=== PATIENT | male | born 1935 | race African-American/Black ===

== ENCOUNTER 2019-01-25 11:06 | Inpatient (IN) ==
[2019-01-25] MEDS ORDERED: FUROSEMIDE 40 MG/4 ML VIAL IV STA (11:25)
[2019-01-25] MEDS ORDERED: METOPROLOL TARTRATE 5 MG/5 ML VIAL IV STA (11:25)
[2019-01-25] MEDS ORDERED: ALBUTEROL/IPRATROPIUM 3 ML NEB RESP TX STA (11:25)
[2019-01-25] MEDS ORDERED: DILTIAZEM 25 MG/5 ML VIAL IV ONE (11:56)
[2019-01-25] MEDS ORDERED: dilTIAZem Drip 125 MG/125 ML PREMIX IV ONE (12:01)
[2019-01-25] MEDS ORDERED: DILTIAZEM 50 MG/10 ML VIAL IV STA (12:01)
[2019-01-25] MEDS ORDERED: DILTIAZEM 50 MG/10 ML VIAL IV ONE (12:01)
[2019-01-25 12:27] LABS: Basophils % 0.1 % (0.0-0.8); Eosinophils % 0.3 % (0.00-10.9); Hematocrit 31.6 VOL% (42.0-52.0); Hemoglobin 9.7 GM/DL (14.0-18.0); Immature Granulocytes % 0.3 %; Immature Granulocytes Absolute 0.02 #; Lymphocytes # 0.6 10*3/uL (1.4-4.0); Lymphocytes % 8.8 % (21.2-54.2); Mean Corpuscular HGB Conc 30.7 GM/DL (32-36); Mean Corpuscular Hemoglobin 29 PG (27-34); Mean Corpuscular Volume 94.6 FL (87-102); Monocytes # 0.8 10*3/uL (0.11-0.8); Monocytes % 11.1 % (1.7-12.7); Neutrophils # 5.5 10*3/uL (1.4-7.4); Neutrophils % 79.4 % (38.7-73.9); Platelet Count 208 T/CUMM (130-400); Red Blood Count 3.34 MC/CUMM (3.8-5.5); Red Cell Distribution Width 15.8 % (9.3-17.3)
[2019-01-25] MEDS ORDERED: dilTIAZem Drip 125 MG/125 ML PREMIX IV SCH (12:30)
[2019-01-25 12:48] LABS: INR 2.4; Partial Thromboplastin Time 39.3 SECS (0-40)
[2019-01-25 12:50] LABS: PT Patient Result 26.3 SECS
[2019-01-25 12:57] LABS: Alanine Aminotransferase 16 U/L (16-61); Albumin 2.8 G/DL (3.4-5.0); Alkaline Phosphatase 142 U/L (45-117); Aspartate Amino Transferase 19 U/L (0-37); Blood Urea Nitrogen 24 MG/DL (7-18); Calcium 9.4 MG/DL (8.5-10.1); Glucose 133 MG/DL (74-106); Osmolality,Calculated 278.8 MOS/KG (273-304); Potassium 3.8 MMOL/L (3.5-5.1); Sodium 137 MMOL/L (136-145); Thyroid Stimulating Hormone 0.148 uIU/ml (0.358-3.74); Total Protein 8.6 G/DL (6.4-8.3); Troponin I 0.038 NG/ML (0.00-0.045)
[2019-01-25 13:14] LABS: Barbiturates Screen,Urine Negative (Negative); Benzodiazepines Screen,Urine Negative (Negative); Cannabinoid Screen,Urine Negative (Negative); Opiate Screen,Urine Negative (Negative); Phencyclidine Screen,Urine Negative (Negative)
[2019-01-25 13:15] LABS: Apearance,Urine CLEAR (Clear); Bilirubin,Urine Negative (Negative); Blood, Urine Small mg/dL (Negative); Glucose,Urine (UA) Negative (Negative); Ketones,Urine Negative (Negative); Mucus,Urine Occasional /LPF (Occasional); Nitrite,Urine Negative (Negative); Protein,Urine 30 MG/DL; RBC,Urine 2 /HPF (0-4); Squamous Epithelial Cell,Urine Occasional /HPF (0-10); Urine Color Yellow (Yellow); Urine Specific Gravity 1.013 (1.001-1.035); Urine Urobilinogen < 2.0 EU/DL (0.2-1.0); WBC,Urine 2 /HPF (0-6)
[2019-01-25] MEDS ORDERED: ONDANSETRON 4 MG/2 ML VIAL IV PRN (14:36)
[2019-01-25] MEDS ORDERED: niCARdipine INJ 25 MG in SODIUM CHLORIDE 0.9% 240 ML IV PRN (14:36)
[2019-01-25] MEDS ORDERED: ACETAMINOPHEN 500 MG TABLET PO PRN (14:36)
[2019-01-25] MEDS ORDERED: INFLUENZA VIRUS VACCINE 0.5 ML SYRINGE IM ONE (15:01)
[2019-01-25] MEDS: FUROSEMIDE 40 MG/4 ML VIAL IV SCH (17:12)
[2019-01-25] MEDS ORDERED: LORATADINE 10 MG TABLET PO ONE (17:49)
[2019-01-25] MEDS ORDERED: WARFARIN 7.5 MG TABLET PO SCH (18:00)
[2019-01-25] MEDS: methylPREDNISolone SOD SUC 40 MG/1 ML VIAL IV SCH (18:43)
[2019-01-25] MEDS: BUDESONIDE 0.25 MG/2 ML NEB RESP TX SCH (19:57)
[2019-01-25] MEDS: ALBUTEROL/IPRATROPIUM 3 ML NEB RESP TX SCH (19:57)
[2019-01-25] MEDS ORDERED: AMIODARONE INJ 150 MG in DEXTROSE 5% 100 ML IV ONE (20:23)
[2019-01-25] MEDS ORDERED: AMIODARONE INJ 450 MG in DEXTROSE 5% 241 ML IV SCH (20:30)
[2019-01-25] MEDS: MEGESTROL 400 MG/10 ML UDCUP PO SCH (21:10)
[2019-01-25] MEDS: BENZONATATE 100 MG CAPSULE PO SCH (21:10)
[2019-01-25] MEDS: TAMSULOSIN 0.4 MG CAPSULE PO SCH (21:10)
[2019-01-25] MEDS: cefTRIAXone 500 MG in SYRINGE 1 EACH IV SCH (21:10)
[2019-01-25 21:26] LABS: Troponin I 0.062 NG/ML (0.00-0.045)
[2019-01-26] MEDS: ALBUTEROL/IPRATROPIUM 3 ML NEB RESP TX SCH ×4 (00:36→20:05)
[2019-01-26 01:12] LABS: Troponin I 0.086 NG/ML (0.00-0.045)
[2019-01-26] MEDS: methylPREDNISolone SOD SUC 40 MG/1 ML VIAL IV SCH ×3 (01:56→20:21)
[2019-01-26 03:15] LABS: Hemoglobin 8.3 GM/DL (14.0-18.0); Immature Granulocytes % 0.4 %; Immature Granulocytes Absolute 0.02 #; Lymphocytes # 0.2 10*3/uL (1.4-4.0); Lymphocytes % 3.7 % (21.2-54.2); Mean Corpuscular HGB Conc 30.7 GM/DL (32-36); Mean Corpuscular Hemoglobin 29 PG (27-34); Mean Corpuscular Volume 94.7 FL (87-102); Monocytes # 0.1 10*3/uL (0.11-0.8); Monocytes % 2.1 % (1.7-12.7); Neutrophils # 4.5 10*3/uL (1.4-7.4); Neutrophils % 93.8 % (38.7-73.9); Platelet Count 202 T/CUMM (130-400); Red Blood Count 2.85 MC/CUMM (3.8-5.5); Red Cell Distribution Width 15.7 % (9.3-17.3); White Blood Count 4.8 T/CUMM (4-12)
[2019-01-26 03:22] LABS: PT Patient Result 32.2 SECS
[2019-01-26 03:32] LABS: Albumin 2.5 G/DL (3.4-5.0); Bilirubin,Total 0.6 MG/DL (0.2-1.0); Osmolality,Calculated 282.1 MOS/KG (273-304); Potassium 3.7 MMOL/L (3.5-5.1); Total Protein 7.9 G/DL (6.4-8.3)
[2019-01-26 03:42] LABS: B-Type Natriuretic Peptide 664 PG/ML (2-100)
[2019-01-26 03:49] LABS: Troponin I 0.106 NG/ML (0.00-0.045)
[2019-01-26 03:54] LABS: Vitamin B12 1276 PG/ML (211-911)
[2019-01-26 04:36] LABS: Acanthocytes Few; Anisocytosis 1+; Band Neutrophils 1 % (0-10); Hypochromasia 1+; Lymphocytes 2 % (20-55); Segmented Neutrophils 95 % (50-85); Total Cells Counted 100
[2019-01-26 04:37] LABS: Platelet Estimate Adequate; Target Cells Few
[2019-01-26] MEDS ORDERED: FUROSEMIDE 40 MG/4 ML VIAL IV ONE (07:15)
[2019-01-26] MEDS ORDERED: SODIUM CHLORIDE 0.9% 1,000 ML IV PRN (07:16)
[2019-01-26] MEDS ORDERED: POTASSIUM CHLORIDE RIDER 10 MEQ in PREMIX 1 EACH IV PRN (07:48)
[2019-01-26] MEDS ORDERED: DIAZEPAM 5 MG TABLET PO ONE (07:48)
[2019-01-26] MEDS ORDERED: MAGNESIUM SULF RIDER 2 GM in PREMIX 1 EACH IV PRN (07:48)
[2019-01-26] MEDS ORDERED: diphenhydrAMINE CAP 25 MG CAPSULE PO ONE (07:48)
[2019-01-26] MEDS ORDERED: AMIODARONE 450 MG/9 ML VIAL IV ONE (07:55)
[2019-01-26] MEDS: BUDESONIDE 0.25 MG/2 ML NEB RESP TX SCH ×2 (08:07→20:05)
[2019-01-26] MEDS: AMIODARONE INJ 450 MG in DEXTROSE 5% 241 ML IV SCH ×2 (08:18→23:20)
[2019-01-26] MEDS: FUROSEMIDE 40 MG/4 ML VIAL IV SCH ×2 (09:35→16:42)
[2019-01-26] MEDS: LORATADINE 10 MG TABLET PO SCH (09:41)
[2019-01-26] MEDS: MEGESTROL 400 MG/10 ML UDCUP PO SCH ×2 (09:42→20:17)
[2019-01-26] MEDS: PANTOPRAZOLE 40 MG TABLET PO SCH (09:42)
[2019-01-26] MEDS: FERROUS SULFATE 325 MG TABLET PO SCH (09:42)
[2019-01-26] MEDS: BENZONATATE 100 MG CAPSULE PO SCH ×3 (09:42→20:18)
[2019-01-26] MEDS ORDERED: HEPARIN/NACL 0.9% 2 UNITS/ML 1,000 ML IV ONE (13:37)
[2019-01-26] MEDS ORDERED: LIDOCAINE 1% 20 ML VIAL ONE (14:00)
[2019-01-26] MEDS ORDERED: HYDROmorphone 2 MG/1 ML VIAL ONE (14:00)
[2019-01-26] MEDS ORDERED: MIDAZOLAM 2 MG/2 ML VIAL ONE (14:01)
[2019-01-26] MEDS: SODIUM CHLORIDE 0.45% 1,000 ML IV SCH ×2 (16:16→16:43)
[2019-01-26] MEDS ORDERED: SODIUM CHLORIDE 0.45% 500 ML IV SCH (19:00)
[2019-01-26] MEDS: TAMSULOSIN 0.4 MG CAPSULE PO SCH (20:17)
[2019-01-26] MEDS: cefTRIAXone 500 MG in SYRINGE 1 EACH IV SCH (20:17)
[2019-01-27] MEDS: ALBUTEROL/IPRATROPIUM 3 ML NEB RESP TX SCH ×4 (00:41→19:38)
[2019-01-27] MEDS: SODIUM CHLORIDE 0.45% 1,000 ML IV SCH ×2 (05:17→14:58)
[2019-01-27] MEDS: methylPREDNISolone SOD SUC 40 MG/1 ML VIAL IV SCH ×3 (05:19→21:32)
[2019-01-27 05:30] LABS: Basophils % 0.1 % (0.0-0.8); Hematocrit 31.9 VOL% (42.0-52.0); Hemoglobin 10.2 GM/DL (14.0-18.0); Immature Granulocytes % 0.6 %; Immature Granulocytes Absolute 0.07 #; Lymphocytes # 0.2 10*3/uL (1.4-4.0); Lymphocytes % 1.6 % (21.2-54.2); Mean Corpuscular Hemoglobin 29 PG (27-34); Mean Corpuscular Volume 91.1 FL (87-102); Mean Platelet Volume 9.5 FL (9.6-12.0); Monocytes # 0.5 10*3/uL (0.11-0.8); Monocytes % 3.7 % (1.7-12.7); Neutrophils # 11.4 10*3/uL (1.4-7.4); Platelet Count 205 T/CUMM (130-400); Red Cell Distribution Width 15.8 % (9.3-17.3); White Blood Count 12.1 T/CUMM (4-12)
[2019-01-27 05:56] LABS: Calcium 9.4 MG/DL (8.5-10.1); Osmolality,Calculated 283.8 MOS/KG (273-304); Potassium 3.6 MMOL/L (3.5-5.1)
[2019-01-27 06:00] LABS: Hypochromasia 1+; Lymphocytes 2 % (20-55); Ovalocytes Slight; Platelet Estimate Adequate; Segmented Neutrophils 94 % (50-85); Total Cells Counted 100
[2019-01-27 06:53] LABS: PT Patient Result 71.3 SECS
[2019-01-27 06:55] LABS: INR 6.7
[2019-01-27] MEDS: BUDESONIDE 0.25 MG/2 ML NEB RESP TX SCH ×2 (08:39→19:39)
[2019-01-27] MEDS: AMIODARONE 200 MG TABLET PO SCH ×2 (09:19→21:28)
[2019-01-27] MEDS: FERROUS SULFATE 325 MG TABLET PO SCH (09:19)
[2019-01-27] MEDS: LORATADINE 10 MG TABLET PO SCH (09:19)
[2019-01-27] MEDS: BENZONATATE 100 MG CAPSULE PO SCH ×3 (09:19→21:28)
[2019-01-27] MEDS: MEGESTROL 400 MG/10 ML UDCUP PO SCH ×2 (09:19→21:29)
[2019-01-27] MEDS: PANTOPRAZOLE 40 MG TABLET PO SCH (09:19)
[2019-01-27] MEDS: FUROSEMIDE 40 MG/4 ML VIAL IV SCH (12:29)
[2019-01-27] MEDS: CARVEDILOL 3.125 MG TABLET PO SCH ×2 (14:29→21:28)
[2019-01-27] MEDS: POTASSIUM CHLORIDE 10 MEQ TABLET PO SCH (14:30)
[2019-01-27] MEDS ORDERED: BISACODYL 5 MG TABLET PO PRN (18:24)
[2019-01-27] MEDS: ASCORBIC ACID 500 MG TABLET PO SCH (21:28)
[2019-01-27] MEDS: TAMSULOSIN 0.4 MG CAPSULE PO SCH (21:29)
[2019-01-27] MEDS: cefTRIAXone 500 MG in SYRINGE 1 EACH IV SCH (21:29)
[2019-01-28] MEDS: ALBUTEROL/IPRATROPIUM 3 ML NEB RESP TX SCH ×4 (01:50→20:41)
[2019-01-28] MEDS: methylPREDNISolone SOD SUC 40 MG/1 ML VIAL IV SCH ×3 (04:30→21:43)
[2019-01-28 05:45] LABS: Calcium 9.3 MG/DL (8.5-10.1); Osmolality,Calculated 285.1 MOS/KG (273-304); Potassium 3.7 MMOL/L (3.5-5.1)
[2019-01-28 05:51] LABS: PT Patient Result 102.2 SECS
[2019-01-28 05:52] LABS: INR 9.6
[2019-01-28] MEDS ORDERED: PHYTONADIONE 10 MG/1 ML AMP SUBCUT ONE (06:03)
[2019-01-28] MEDS: SODIUM CHLORIDE 0.45% 1,000 ML IV SCH (06:14)
[2019-01-28] MEDS: BUDESONIDE 0.25 MG/2 ML NEB RESP TX SCH ×2 (06:54→20:41)
[2019-01-28] MEDS: AMIODARONE 200 MG TABLET PO SCH ×2 (08:40→21:42)
[2019-01-28] MEDS: POTASSIUM CHLORIDE 10 MEQ TABLET PO SCH (08:40)
[2019-01-28] MEDS: LORATADINE 10 MG TABLET PO SCH (08:40)
[2019-01-28] MEDS: CARVEDILOL 3.125 MG TABLET PO SCH ×2 (08:41→21:42)
[2019-01-28] MEDS: BENZONATATE 100 MG CAPSULE PO SCH ×3 (08:41→21:42)
[2019-01-28] MEDS: FERROUS SULFATE 325 MG TABLET PO SCH (08:41)
[2019-01-28] MEDS: MEGESTROL 400 MG/10 ML UDCUP PO SCH ×2 (08:41→21:41)
[2019-01-28] MEDS: ASCORBIC ACID 500 MG TABLET PO SCH ×2 (08:41→21:42)
[2019-01-28] MEDS: PANTOPRAZOLE 40 MG TABLET PO SCH (08:41)
[2019-01-28] MEDS: TAMSULOSIN 0.4 MG CAPSULE PO SCH (21:42)
[2019-01-28] MEDS: cefTRIAXone 500 MG in SYRINGE 1 EACH IV SCH (21:43)
[2019-01-29] MEDS: ALBUTEROL/IPRATROPIUM 3 ML NEB RESP TX SCH ×4 (01:36→19:20)
[2019-01-29 04:33] LABS: INR 4.2
[2019-01-29 04:37] LABS: PT Patient Result 44.6 SECS
[2019-01-29 04:54] LABS: Basophils % 0.1 % (0.0-0.8); Hematocrit 32.6 VOL% (42.0-52.0); Hemoglobin 10.3 GM/DL (14.0-18.0); Immature Granulocytes Absolute 0.15 #; Lymphocytes # 0.1 10*3/uL (1.4-4.0); Mean Corpuscular HGB Conc 31.6 GM/DL (32-36); Mean Corpuscular Hemoglobin 29 PG (27-34); Mean Corpuscular Volume 91.1 FL (87-102); Monocytes # 0.7 10*3/uL (0.11-0.8); Monocytes % 4.5 % (1.7-12.7); Neutrophils # 13.5 10*3/uL (1.4-7.4); Neutrophils % 93.4 % (38.7-73.9); Platelet Count 233 T/CUMM (130-400); Red Blood Count 3.58 MC/CUMM (3.8-5.5); Red Cell Distribution Width 15.8 % (9.3-17.3); White Blood Count 14.5 T/CUMM (4-12)
[2019-01-29 04:58] LABS: Calcium 9.1 MG/DL (8.5-10.1); Osmolality,Calculated 295.4 MOS/KG (273-304); Potassium 4.1 MMOL/L (3.5-5.1)
[2019-01-29 05:23] LABS: Hypochromasia 1+; Lymphocytes 2 % (20-55); Microcytosis 1+; Platelet Estimate Normal; Polychromasia Few; Segmented Neutrophils 98 % (50-85); Total Cells Counted 100
[2019-01-29] MEDS: BUDESONIDE 0.25 MG/2 ML NEB RESP TX SCH ×2 (07:12→19:20)
[2019-01-29] MEDS: methylPREDNISolone SOD SUC 40 MG/1 ML VIAL IV SCH ×3 (07:48→21:54)
[2019-01-29] MEDS: LORATADINE 10 MG TABLET PO SCH (09:28)
[2019-01-29] MEDS: ASCORBIC ACID 500 MG TABLET PO SCH ×2 (09:28→22:01)
[2019-01-29] MEDS: POTASSIUM CHLORIDE 10 MEQ TABLET PO SCH (09:28)
[2019-01-29] MEDS: CARVEDILOL 3.125 MG TABLET PO SCH ×2 (09:28→21:53)
[2019-01-29] MEDS: MEGESTROL 400 MG/10 ML UDCUP PO SCH ×2 (09:28→21:51)
[2019-01-29] MEDS: PANTOPRAZOLE 40 MG TABLET PO SCH (09:29)
[2019-01-29] MEDS: BENZONATATE 100 MG CAPSULE PO SCH ×3 (09:29→21:53)
[2019-01-29] MEDS: FERROUS SULFATE 325 MG TABLET PO SCH (09:29)
[2019-01-29] MEDS: AMIODARONE 200 MG TABLET PO SCH ×2 (09:29→21:53)
[2019-01-29] MEDS: cefTRIAXone 500 MG in SYRINGE 1 EACH IV SCH (21:50)
[2019-01-29] MEDS: TAMSULOSIN 0.4 MG CAPSULE PO SCH (21:53)
[2019-01-29] MEDS: ZALEPLON 5 MG CAPSULE PO PRN (21:53)
[2019-01-30] MEDS: ALBUTEROL/IPRATROPIUM 3 ML NEB RESP TX SCH ×4 (00:35→19:58)
[2019-01-30] MEDS: methylPREDNISolone SOD SUC 40 MG/1 ML VIAL IV SCH ×3 (05:00→20:55)
[2019-01-30] MEDS: BUDESONIDE 0.25 MG/2 ML NEB RESP TX SCH ×2 (07:46→19:58)
[2019-01-30] MEDS ORDERED: FUROSEMIDE 40 MG/4 ML VIAL IV ONE (08:05)
[2019-01-30] MEDS: ASCORBIC ACID 500 MG TABLET PO SCH ×2 (09:05→20:55)
[2019-01-30] MEDS: PANTOPRAZOLE 40 MG TABLET PO SCH (09:05)
[2019-01-30] MEDS: AMIODARONE 200 MG TABLET PO SCH ×2 (09:06→20:55)
[2019-01-30] MEDS: BENZONATATE 100 MG CAPSULE PO SCH ×3 (09:06→20:55)
[2019-01-30] MEDS: LORATADINE 10 MG TABLET PO SCH (09:06)
[2019-01-30] MEDS: FERROUS SULFATE 325 MG TABLET PO SCH (09:07)
[2019-01-30] MEDS: POTASSIUM CHLORIDE 10 MEQ TABLET PO SCH (09:07)
[2019-01-30] MEDS: MEGESTROL 400 MG/10 ML UDCUP PO SCH ×2 (09:08→20:54)
[2019-01-30] MEDS: TAMSULOSIN 0.4 MG CAPSULE PO SCH (20:55)
[2019-01-30] MEDS: ZALEPLON 5 MG CAPSULE PO PRN (20:55)
[2019-01-30] MEDS: cefTRIAXone 500 MG in SYRINGE 1 EACH IV SCH (20:56)
[2019-01-31] MEDS: ALBUTEROL/IPRATROPIUM 3 ML NEB RESP TX SCH ×4 (01:22→19:20)
[2019-01-31] MEDS: methylPREDNISolone SOD SUC 40 MG/1 ML VIAL IV SCH ×3 (04:32→22:19)
[2019-01-31 06:03] LABS: Basophils % 0.1 % (0.0-0.8); Hematocrit 35.2 VOL% (42.0-52.0); Hemoglobin 11.1 GM/DL (14.0-18.0); Immature Granulocytes % 0.7 %; Immature Granulocytes Absolute 0.09 #; Lymphocytes # 0.2 10*3/uL (1.4-4.0); Lymphocytes % 1.5 % (21.2-54.2); Mean Corpuscular HGB Conc 31.5 GM/DL (32-36); Mean Corpuscular Hemoglobin 29 PG (27-34); Mean Corpuscular Volume 92.1 FL (87-102); Mean Platelet Volume 9.7 FL (9.6-12.0); Monocytes # 0.7 10*3/uL (0.11-0.8); Monocytes % 5.3 % (1.7-12.7); Neutrophils # 11.8 10*3/uL (1.4-7.4); Neutrophils % 92.4 % (38.7-73.9); Platelet Count 288 T/CUMM (130-400); Red Blood Count 3.82 MC/CUMM (3.8-5.5); White Blood Count 12.8 T/CUMM (4-12)
[2019-01-31 06:12] LABS: INR 1.8; PT Patient Result 19.9 SECS
[2019-01-31 06:20] LABS: Albumin 2.5 G/DL (3.4-5.0); Bilirubin,Total 0.9 MG/DL (0.2-1.0); Calcium 9.7 MG/DL (8.5-10.1); Potassium 4.5 MMOL/L (3.5-5.1); Total Protein 7.8 G/DL (6.4-8.3)
[2019-01-31 06:33] LABS: Eosinophils 1 % (0-10); Lymphocytes 1 % (20-55); Platelet Estimate Normal; Segmented Neutrophils 97 % (50-85); Total Cells Counted 100
[2019-01-31 06:34] LABS: Hypochromasia Slight
[2019-01-31] MEDS: BUDESONIDE 0.25 MG/2 ML NEB RESP TX SCH ×2 (07:10→19:20)
[2019-01-31] MEDS: ASCORBIC ACID 500 MG TABLET PO SCH ×2 (08:56→22:18)
[2019-01-31] MEDS: BENZONATATE 100 MG CAPSULE PO SCH ×3 (08:56→22:18)
[2019-01-31] MEDS: POTASSIUM CHLORIDE 10 MEQ TABLET PO SCH (08:57)
[2019-01-31] MEDS: FERROUS SULFATE 325 MG TABLET PO SCH (08:57)
[2019-01-31] MEDS: AMIODARONE 200 MG TABLET PO SCH ×2 (08:57→22:18)
[2019-01-31] MEDS: LORATADINE 10 MG TABLET PO SCH (08:58)
[2019-01-31] MEDS: MEGESTROL 400 MG/10 ML UDCUP PO SCH ×2 (08:59→22:19)
[2019-01-31] MEDS: PANTOPRAZOLE 40 MG TABLET PO SCH (08:59)
[2019-01-31] MEDS ORDERED: SODIUM CHLORIDE 0.9% 1,000 ML IV SCH (17:30)
[2019-01-31] MEDS: cefTRIAXone 500 MG in SYRINGE 1 EACH IV SCH (22:15)
[2019-01-31] MEDS: TAMSULOSIN 0.4 MG CAPSULE PO SCH (22:19)
[2019-01-31] MEDS: traZODone 50 MG TABLET PO PRN (22:20)
[2019-02-01] MEDS: ALBUTEROL/IPRATROPIUM 3 ML NEB RESP TX SCH ×4 (00:16→19:57)
[2019-02-01] MEDS: methylPREDNISolone SOD SUC 40 MG/1 ML VIAL IV SCH ×3 (04:42→20:26)
[2019-02-01 04:44] LABS: Basophils % 0.1 % (0.0-0.8); Hematocrit 34.8 VOL% (42.0-52.0); Hemoglobin 10.6 GM/DL (14.0-18.0); Immature Granulocytes % 1.7 %; Lymphocytes # 0.2 10*3/uL (1.4-4.0); Lymphocytes % 1.5 % (21.2-54.2); Mean Corpuscular HGB Conc 30.5 GM/DL (32-36); Mean Corpuscular Hemoglobin 29 PG (27-34); Mean Corpuscular Volume 94.1 FL (87-102); Mean Platelet Volume 9.5 FL (9.6-12.0); Monocytes # 0.7 10*3/uL (0.11-0.8); Neutrophils # 10.9 10*3/uL (1.4-7.4); Neutrophils % 90.7 % (38.7-73.9); Platelet Count 280 T/CUMM (130-400); Red Cell Distribution Width 15.9 % (9.3-17.3)
[2019-02-01 04:50] LABS: INR 1.7; PT Patient Result 18.4 SECS
[2019-02-01 05:10] LABS: Band Neutrophils 1 % (0-10); Lymphocytes 2 % (20-55); Metamyelocytes 3 %; Platelet Estimate Normal; Segmented Neutrophils 86 % (50-85); Total Cells Counted 100
[2019-02-01 05:13] LABS: Calcium 9.4 MG/DL (8.5-10.1); Osmolality,Calculated 294.4 MOS/KG (273-304); Potassium 4.6 MMOL/L (3.5-5.1)
[2019-02-01] MEDS: BUDESONIDE 0.25 MG/2 ML NEB RESP TX SCH ×2 (07:50→19:57)
[2019-02-01] MEDS: FERROUS SULFATE 325 MG TABLET PO SCH (10:33)
[2019-02-01] MEDS: AMIODARONE 200 MG TABLET PO SCH ×2 (10:33→20:26)
[2019-02-01] MEDS: LORATADINE 10 MG TABLET PO SCH (10:33)
[2019-02-01] MEDS: POTASSIUM CHLORIDE 10 MEQ TABLET PO SCH (10:34)
[2019-02-01] MEDS: PANTOPRAZOLE 40 MG TABLET PO SCH (10:34)
[2019-02-01] MEDS: MEGESTROL 400 MG/10 ML UDCUP PO SCH ×2 (10:34→20:26)
[2019-02-01] MEDS: BENZONATATE 100 MG CAPSULE PO SCH ×3 (10:35→20:27)
[2019-02-01] MEDS: ASCORBIC ACID 500 MG TABLET PO SCH ×2 (10:35→20:26)
[2019-02-01] MEDS ORDERED: ceFAZolin 1,000 MG VIAL IRRIG ONE (12:00)
[2019-02-01] MEDS ORDERED: diphenhydrAMINE CAP 25 MG CAPSULE PO ONE (12:00)
[2019-02-01] MEDS ORDERED: ceFAZolin 1,000 MG in SYRINGE 1 EACH IV ONE (12:00)
[2019-02-01] MEDS ORDERED: DIAZEPAM 5 MG TABLET PO ONE (12:00)
[2019-02-01] MEDS ORDERED: ceFAZolin 1,000 MG VIAL ONE (12:51)
[2019-02-01] MEDS ORDERED: LIDOCAINE 1% 20 ML VIAL ONE (12:51)
[2019-02-01] MEDS ORDERED: TISSUE ADHESIVE 1 EACH APPLICATOR TOP ONE (12:51)
[2019-02-01] MEDS ORDERED: PROPOFOL 200 MG/20 ML VIAL IV ONE (16:46)
[2019-02-01] MEDS ORDERED: ETOMIDATE 40 MG/20 ML VIAL IV ONE (16:46)
[2019-02-01] MEDS ORDERED: SODIUM CHLORIDE 0.9% 250 ML IV ONE (16:46)
[2019-02-01] MEDS: traZODone 50 MG TABLET PO PRN (20:26)
[2019-02-01] MEDS: TAMSULOSIN 0.4 MG CAPSULE PO SCH (20:26)
[2019-02-01] MEDS: cefTRIAXone 500 MG in SYRINGE 1 EACH IV SCH (21:20)
[2019-02-02] MEDS: ALBUTEROL/IPRATROPIUM 3 ML NEB RESP TX SCH ×4 (01:07→19:00)
[2019-02-02 05:05] LABS: Basophils % 0.1 % (0.0-0.8); Hematocrit 32.4 VOL% (42.0-52.0); Hemoglobin 9.9 GM/DL (14.0-18.0); Immature Granulocytes % 2.5 %; Immature Granulocytes Absolute 0.22 #; Lymphocytes # 0.2 10*3/uL (1.4-4.0); Lymphocytes % 1.7 % (21.2-54.2); Mean Corpuscular HGB Conc 30.6 GM/DL (32-36); Mean Corpuscular Hemoglobin 28 PG (27-34); Mean Corpuscular Volume 93.1 FL (87-102); Mean Platelet Volume 9.5 FL (9.6-12.0); Monocytes # 0.8 10*3/uL (0.11-0.8); Monocytes % 9.1 % (1.7-12.7); Neutrophils # 7.7 10*3/uL (1.4-7.4); Neutrophils % 86.6 % (38.7-73.9); Platelet Count 254 T/CUMM (130-400); Red Blood Count 3.48 MC/CUMM (3.8-5.5); Red Cell Distribution Width 15.9 % (9.3-17.3); White Blood Count 8.8 T/CUMM (4-12)
[2019-02-02] MEDS: methylPREDNISolone SOD SUC 40 MG/1 ML VIAL IV SCH ×2 (05:14→11:38)
[2019-02-02 05:29] LABS: Calcium 9.2 MG/DL (8.5-10.1); Osmolality,Calculated 295.1 MOS/KG (273-304)
[2019-02-02 05:42] LABS: Hypochromasia 1+; Lymphocytes 1 % (20-55); Ovalocytes Slight; Platelet Estimate Adequate; Segmented Neutrophils 91 % (50-85); Total Cells Counted 100
[2019-02-02] MEDS: BUDESONIDE 0.25 MG/2 ML NEB RESP TX SCH ×2 (07:02→19:00)
[2019-02-02] MEDS: MEGESTROL 400 MG/10 ML UDCUP PO SCH (09:10)
[2019-02-02] MEDS: ASCORBIC ACID 500 MG TABLET PO SCH (09:11)
[2019-02-02] MEDS: LORATADINE 10 MG TABLET PO SCH (09:12)
[2019-02-02] MEDS: POTASSIUM CHLORIDE 10 MEQ TABLET PO SCH (09:12)
[2019-02-02] MEDS: BENZONATATE 100 MG CAPSULE PO SCH ×2 (09:12→16:28)
[2019-02-02] MEDS: FERROUS SULFATE 325 MG TABLET PO SCH (09:12)
[2019-02-02] MEDS: PANTOPRAZOLE 40 MG TABLET PO SCH (09:12)
[2019-02-02] MEDS: AMIODARONE 200 MG TABLET PO SCH (09:12)
[2019-02-02] MEDS ORDERED: FUROSEMIDE 40 MG/4 ML VIAL IV ONE (10:55)
[2019-02-02] MEDS ORDERED: CARVEDILOL 3.125 MG TABLET PO SCH (11:00)
[2019-02-02 16:25] VITALS: BP 158/74
[2019-02-02] MEDS ORDERED: WARFARIN 7.5 MG TABLET PO SCH (18:00)
== END 2019-02-02 19:12 | disposition home health service (06) | DRG 245 ==
LOC: N.ED 11:06 → N.EDINP 13:28 → N.TELES 14:35
PROVIDERS: ADMIT Internal Medicine; ATTEND Internal Medicine
PROC: CLCCHCL (ICD-10-PCS; 2019-01-26 15:45)
PROC: CLSCICD (2019-02-01 14:45)

== ENCOUNTER 2019-02-09 09:20 | Inpatient (IN) ==
[2019-02-09 10:43] LABS: Basophils % 0.1 % (0.0-0.8); Hematocrit 36.9 VOL% (42.0-52.0); Hemoglobin 11.7 GM/DL (14.0-18.0); Immature Granulocytes % 1.1 %; Immature Granulocytes Absolute 0.23 #; Lymphocytes # 0.3 10*3/uL (1.4-4.0); Lymphocytes % 1.5 % (21.2-54.2); Mean Corpuscular HGB Conc 31.7 GM/DL (32-36); Mean Corpuscular Hemoglobin 29 PG (27-34); Mean Corpuscular Volume 91.6 FL (87-102); Mean Platelet Volume 9.5 FL (9.6-12.0); Monocytes # 0.9 10*3/uL (0.11-0.8); Monocytes % 4.3 % (1.7-12.7); Neutrophils # 19.4 10*3/uL (1.4-7.4); Platelet Count 229 T/CUMM (130-400); Red Blood Count 4.03 MC/CUMM (3.8-5.5); Red Cell Distribution Width 16.5 % (9.3-17.3); White Blood Count 20.8 T/CUMM (4-12)
[2019-02-09 11:03] LABS: Lymphocytes 1 % (20-55); Platelet Estimate Normal; Segmented Neutrophils 87 % (50-85); Total Cells Counted 100
[2019-02-09 11:04] LABS: Anisocytosis 1+; Macrocytosis 1+; Polychromasia Slight
[2019-02-09 11:41] LABS: Albumin 2.2 G/DL (3.4-5.0); Bilirubin,Total 0.4 MG/DL (0.2-1.0); Osmolality,Calculated 292.7 MOS/KG (273-304); Potassium 4.8 MMOL/L (3.5-5.1); Total Protein 7.6 G/DL (6.4-8.3)
[2019-02-09] MEDS ORDERED: ONDANSETRON 4 MG/2 ML VIAL IV PRN (12:44)
[2019-02-09] MEDS ORDERED: ACETAMINOPHEN 325 MG TABLET PO PRN (12:44)
[2019-02-09] MEDS ORDERED: LEVOFLOXACIN INJ 500 MG in PREMIX 1 EACH IV STA (12:45)
[2019-02-09 14:54] LABS: INR 7.5
[2019-02-09] MEDS ORDERED: ALBUTEROL/IPRATROPIUM 3 ML NEB RESP TX PRN (15:10)
[2019-02-09] MEDS ORDERED: FUROSEMIDE 40 MG/4 ML VIAL IV ONE (15:13)
[2019-02-09] MEDS: DOCUSATE SODIUM 100 MG CAPSULE PO SCH (20:37)
[2019-02-10 05:26] LABS: Basophils % 0.1 % (0.0-0.8); Hematocrit 32.8 VOL% (42.0-52.0); Hemoglobin 10.4 GM/DL (14.0-18.0); Immature Granulocytes % 1.1 %; Immature Granulocytes Absolute 0.18 #; Lymphocytes # 0.4 10*3/uL (1.4-4.0); Lymphocytes % 2.2 % (21.2-54.2); Mean Corpuscular HGB Conc 31.7 GM/DL (32-36); Mean Corpuscular Hemoglobin 29 PG (27-34); Mean Corpuscular Volume 90.9 FL (87-102); Mean Platelet Volume 9.7 FL (9.6-12.0); Monocytes % 6.3 % (1.7-12.7); Neutrophils # 14.9 10*3/uL (1.4-7.4); Neutrophils % 90.3 % (38.7-73.9); Platelet Count 230 T/CUMM (130-400); Red Blood Count 3.61 MC/CUMM (3.8-5.5); Red Cell Distribution Width 16.5 % (9.3-17.3); White Blood Count 16.5 T/CUMM (4-12)
[2019-02-10 05:34] LABS: Calcium 9.2 MG/DL (8.5-10.1); Osmolality,Calculated 291.7 MOS/KG (273-304); Potassium 4.6 MMOL/L (3.5-5.1)
[2019-02-10 05:56] LABS: PT Patient Result 77.4 SECS
[2019-02-10 05:59] LABS: INR 7.2
[2019-02-10 06:47] LABS: Band Neutrophils 1 % (0-10); Lymphocytes 2 % (20-55); Segmented Neutrophils 95 % (50-85); Total Cells Counted 100
[2019-02-10 06:48] LABS: Anisocytosis 1+; Platelet Estimate Adequate
[2019-02-10] MEDS ORDERED: FUROSEMIDE 40 MG/4 ML VIAL IV SCH ×2 (08:00→09:00)
[2019-02-10] MEDS: FUROSEMIDE 40 MG/4 ML VIAL IV SCH (09:42)
[2019-02-10] MEDS: cefTRIAXone 1,000 MG in SYRINGE 1 EACH IV SCH (09:42)
[2019-02-10] MEDS: DOCUSATE SODIUM 100 MG CAPSULE PO SCH ×2 (09:47→20:14)
[2019-02-10] MEDS: PANTOPRAZOLE 40 MG TABLET PO SCH (09:47)
[2019-02-10] MEDS ORDERED: traZODone 50 MG TABLET PO PRN (18:43)
[2019-02-10] MEDS ORDERED: ACETAMINOPHEN 500 MG TABLET PO PRN (20:34)
[2019-02-11 05:17] LABS: Calcium 9.4 MG/DL (8.5-10.1); Osmolality,Calculated 293.7 MOS/KG (273-304); Potassium 4.3 MMOL/L (3.5-5.1)
[2019-02-11 05:42] LABS: PT Patient Result 62.9 SECS
[2019-02-11 05:44] LABS: INR 5.9
[2019-02-11] MEDS: MEGESTROL 400 MG/10 ML UDCUP PO SCH ×2 (08:37→16:54)
[2019-02-11] MEDS: LORATADINE 10 MG TABLET PO SCH (08:37)
[2019-02-11] MEDS: PANTOPRAZOLE 40 MG TABLET PO SCH (08:37)
[2019-02-11] MEDS: DOCUSATE SODIUM 100 MG CAPSULE PO SCH ×2 (08:38→22:09)
[2019-02-11] MEDS: FERROUS SULFATE 325 MG TABLET PO SCH (08:38)
[2019-02-11] MEDS: FUROSEMIDE 40 MG/4 ML VIAL IV SCH (08:40)
[2019-02-11] MEDS: cefTRIAXone 1,000 MG in SYRINGE 1 EACH IV SCH (08:40)
[2019-02-12 04:42] LABS: Basophils % 0.1 % (0.0-0.8); Eosinophils % 0.1 % (0.00-10.9); Immature Granulocytes % 1.1 %; Lymphocytes # 0.4 10*3/uL (1.4-4.0); Mean Corpuscular HGB Conc 31.3 GM/DL (32-36); Mean Corpuscular Hemoglobin 29 PG (27-34); Mean Corpuscular Volume 91.7 FL (87-102); Mean Platelet Volume 9.6 FL (9.6-12.0); Monocytes % 5.1 % (1.7-12.7); Neutrophils # 17.4 10*3/uL (1.4-7.4); Neutrophils % 91.6 % (38.7-73.9); Platelet Count 218 T/CUMM (130-400); Red Blood Count 3.49 MC/CUMM (3.8-5.5); Red Cell Distribution Width 16.8 % (9.3-17.3)
[2019-02-12 04:57] LABS: INR 6.1
[2019-02-12 05:03] LABS: Calcium 8.9 MG/DL (8.5-10.1); Osmolality,Calculated 298.3 MOS/KG (273-304); Potassium 4.2 MMOL/L (3.5-5.1)
[2019-02-12 05:11] LABS: Band Neutrophils 3 % (0-10); Lymphocytes 3 % (20-55); Platelet Estimate Normal; Segmented Neutrophils 91 % (50-85); Total Cells Counted 100
[2019-02-12] MEDS: DOCUSATE SODIUM 100 MG CAPSULE PO SCH ×2 (08:28→21:22)
[2019-02-12] MEDS: FERROUS SULFATE 325 MG TABLET PO SCH (08:28)
[2019-02-12] MEDS: LORATADINE 10 MG TABLET PO SCH (08:28)
[2019-02-12] MEDS: MEGESTROL 400 MG/10 ML UDCUP PO SCH ×2 (08:28→17:05)
[2019-02-12] MEDS: PANTOPRAZOLE 40 MG TABLET PO SCH (08:29)
[2019-02-12] MEDS: cefTRIAXone 1,000 MG in SYRINGE 1 EACH IV SCH (09:15)
[2019-02-12] MEDS: FUROSEMIDE 40 MG/4 ML VIAL IV SCH (09:16)
[2019-02-12] MEDS ORDERED: BISACODYL 5 MG TABLET PO ONE (09:55)
[2019-02-13 06:10] LABS: Basophils % 0.1 % (0.0-0.8); Eosinophils % 0.1 % (0.00-10.9); Hematocrit 29.6 VOL% (42.0-52.0); Hemoglobin 9.2 GM/DL (14.0-18.0); Immature Granulocytes Absolute 0.17 #; Lymphocytes # 0.3 10*3/uL (1.4-4.0); Mean Corpuscular HGB Conc 31.1 GM/DL (32-36); Mean Corpuscular Hemoglobin 29 PG (27-34); Mean Corpuscular Volume 92.5 FL (87-102); Mean Platelet Volume 10.3 FL (9.6-12.0); Monocytes # 0.9 10*3/uL (0.11-0.8); Monocytes % 5.2 % (1.7-12.7); Neutrophils # 15.7 10*3/uL (1.4-7.4); Neutrophils % 91.6 % (38.7-73.9); Platelet Count 206 T/CUMM (130-400); White Blood Count 17.2 T/CUMM (4-12)
[2019-02-13 06:32] LABS: Lymphocytes 3 % (20-55); Platelet Estimate Adequate; Segmented Neutrophils 89 % (50-85)
[2019-02-13 06:33] LABS: Hypochromasia 1+; Ovalocytes Slight; Total Cells Counted 100
[2019-02-13 06:37] LABS: PT Patient Result 58.4 SECS
[2019-02-13 06:38] LABS: INR 5.5
[2019-02-13 06:55] LABS: Calcium 8.8 MG/DL (8.5-10.1); Osmolality,Calculated 295.3 MOS/KG (273-304); Potassium 3.9 MMOL/L (3.5-5.1)
[2019-02-13] MEDS: PANTOPRAZOLE 40 MG TABLET PO SCH (09:10)
[2019-02-13] MEDS: MEGESTROL 400 MG/10 ML UDCUP PO SCH ×2 (09:10→17:29)
[2019-02-13] MEDS: LORATADINE 10 MG TABLET PO SCH (09:10)
[2019-02-13] MEDS: DOCUSATE SODIUM 100 MG CAPSULE PO SCH ×2 (09:11→20:34)
[2019-02-13] MEDS: FERROUS SULFATE 325 MG TABLET PO SCH (09:11)
[2019-02-13] MEDS: POLYETHYLENE GLYCOL POWDER 17 GM PACK PO SCH (09:14)
[2019-02-13] MEDS: FUROSEMIDE 40 MG/4 ML VIAL IV SCH (09:16)
[2019-02-13] MEDS: cefTRIAXone 1,000 MG in SYRINGE 1 EACH IV SCH (09:16)
[2019-02-13] MEDS: CARVEDILOL 3.125 MG TABLET PO SCH ×2 (13:36→20:34)
[2019-02-13] MEDS: TAMSULOSIN 0.4 MG CAPSULE PO SCH (13:36)
[2019-02-13] MEDS: ASCORBIC ACID 500 MG TABLET PO SCH (20:34)
[2019-02-14 05:20] LABS: PT Patient Result 42.9 SECS
[2019-02-14] MEDS: DOCUSATE SODIUM 100 MG CAPSULE PO SCH ×2 (09:41→21:07)
[2019-02-14] MEDS: TAMSULOSIN 0.4 MG CAPSULE PO SCH (09:41)
[2019-02-14] MEDS: ASCORBIC ACID 500 MG TABLET PO SCH ×2 (09:41→21:07)
[2019-02-14] MEDS: CARVEDILOL 3.125 MG TABLET PO SCH (09:41)
[2019-02-14] MEDS: LORATADINE 10 MG TABLET PO SCH (09:41)
[2019-02-14] MEDS: FERROUS SULFATE 325 MG TABLET PO SCH (09:41)
[2019-02-14] MEDS: POLYETHYLENE GLYCOL POWDER 17 GM PACK PO SCH (09:41)
[2019-02-14] MEDS: PANTOPRAZOLE 40 MG TABLET PO SCH (09:41)
[2019-02-14] MEDS: cefTRIAXone 1,000 MG in SYRINGE 1 EACH IV SCH (09:42)
[2019-02-14] MEDS: MEGESTROL 400 MG/10 ML UDCUP PO SCH ×2 (09:42→16:25)
[2019-02-14] MEDS: FUROSEMIDE 40 MG/4 ML VIAL IV SCH (11:20)
[2019-02-14] MEDS ORDERED: ALBUTEROL/IPRATROPIUM 3 ML NEB RESP TX ONE (20:01)
[2019-02-15 04:29] LABS: Hematocrit 28.9 VOL% (42.0-52.0); Immature Granulocytes % 1.1 %; Immature Granulocytes Absolute 0.18 #; Lymphocytes # 0.4 10*3/uL (1.4-4.0); Lymphocytes % 2.3 % (21.2-54.2); Mean Corpuscular HGB Conc 31.1 GM/DL (32-36); Mean Corpuscular Hemoglobin 28 PG (27-34); Mean Corpuscular Volume 91.2 FL (87-102); Mean Platelet Volume 9.9 FL (9.6-12.0); Monocytes # 0.8 10*3/uL (0.11-0.8); Monocytes % 4.9 % (1.7-12.7); Neutrophils # 15.3 10*3/uL (1.4-7.4); Neutrophils % 91.7 % (38.7-73.9); Platelet Count 223 T/CUMM (130-400); Red Blood Count 3.17 MC/CUMM (3.8-5.5); White Blood Count 16.7 T/CUMM (4-12)
[2019-02-15 04:37] LABS: INR 2.9
[2019-02-15 04:42] LABS: Calcium 9.2 MG/DL (8.5-10.1); Osmolality,Calculated 293.5 MOS/KG (273-304); PT Patient Result 31.4 SECS; Potassium 4.2 MMOL/L (3.5-5.1)
[2019-02-15 05:17] LABS: Band Neutrophils 2 % (0-10); Eosinophils 1 % (0-10); Lymphocytes 2 % (20-55); Platelet Estimate Normal; Segmented Neutrophils 91 % (50-85); Total Cells Counted 100
[2019-02-15] MEDS: ALBUTEROL/IPRATROPIUM 3 ML NEB RESP TX SCH ×4 (07:24→19:12)
[2019-02-15] MEDS: MEGESTROL 400 MG/10 ML UDCUP PO SCH ×2 (09:03→16:42)
[2019-02-15] MEDS: POLYETHYLENE GLYCOL POWDER 17 GM PACK PO SCH (09:03)
[2019-02-15] MEDS: FUROSEMIDE 40 MG/4 ML VIAL IV SCH (09:03)
[2019-02-15] MEDS: ASCORBIC ACID 500 MG TABLET PO SCH ×2 (09:03→20:29)
[2019-02-15] MEDS: PANTOPRAZOLE 40 MG TABLET PO SCH (09:03)
[2019-02-15] MEDS: DOCUSATE SODIUM 100 MG CAPSULE PO SCH ×2 (09:03→20:29)
[2019-02-15] MEDS: LORATADINE 10 MG TABLET PO SCH (09:03)
[2019-02-15] MEDS: FERROUS SULFATE 325 MG TABLET PO SCH (09:03)
[2019-02-15] MEDS: cefTRIAXone 1,000 MG in SYRINGE 1 EACH IV SCH (09:04)
[2019-02-15] MEDS: TAMSULOSIN 0.4 MG CAPSULE PO SCH (09:04)
[2019-02-15] MEDS: CARVEDILOL 3.125 MG TABLET PO SCH (09:05)
[2019-02-16 04:52] LABS: Basophils % 0.1 % (0.0-0.8); Eosinophils % 0.1 % (0.00-10.9); Hematocrit 27.9 VOL% (42.0-52.0); Hemoglobin 8.8 GM/DL (14.0-18.0); Immature Granulocytes % 1.2 %; Immature Granulocytes Absolute 0.19 #; Lymphocytes # 0.4 10*3/uL (1.4-4.0); Lymphocytes % 2.6 % (21.2-54.2); Mean Corpuscular HGB Conc 31.5 GM/DL (32-36); Mean Corpuscular Hemoglobin 29 PG (27-34); Mean Corpuscular Volume 92.4 FL (87-102); Mean Platelet Volume 9.9 FL (9.6-12.0); Monocytes # 0.9 10*3/uL (0.11-0.8); Monocytes % 5.5 % (1.7-12.7); NRBC # 0.02 10*3/uL; Neutrophils % 90.5 % (38.7-73.9); Platelet Count 235 T/CUMM (130-400); Red Blood Count 3.02 MC/CUMM (3.8-5.5); Red Cell Distribution Width 17.2 % (9.3-17.3); White Blood Count 15.5 T/CUMM (4-12)
[2019-02-16 05:08] LABS: Calcium 9.4 MG/DL (8.5-10.1); Osmolality,Calculated 295.7 MOS/KG (273-304); Potassium 4.4 MMOL/L (3.5-5.1)
[2019-02-16 05:20] LABS: INR 6.2
[2019-02-16 05:58] LABS: Lymphocytes 2 % (20-55); Platelet Estimate Normal; Polychromasia Few; Segmented Neutrophils 95 % (50-85); Total Cells Counted 100
[2019-02-16 06:08] LABS: INR 2.6
[2019-02-16 06:09] LABS: PT Patient Result 28.2 SECS
[2019-02-16] MEDS: ALBUTEROL/IPRATROPIUM 3 ML NEB RESP TX SCH ×4 (08:01→18:52)
[2019-02-16] MEDS: PANTOPRAZOLE 40 MG TABLET PO SCH (08:27)
[2019-02-16] MEDS: ASCORBIC ACID 500 MG TABLET PO SCH ×2 (08:27→20:18)
[2019-02-16] MEDS: FERROUS SULFATE 325 MG TABLET PO SCH (08:27)
[2019-02-16] MEDS: DOCUSATE SODIUM 100 MG CAPSULE PO SCH ×2 (08:27→20:18)
[2019-02-16] MEDS: TAMSULOSIN 0.4 MG CAPSULE PO SCH (08:27)
[2019-02-16] MEDS: FUROSEMIDE 40 MG/4 ML VIAL IV SCH (08:28)
[2019-02-16] MEDS: CARVEDILOL 3.125 MG TABLET PO SCH (08:28)
[2019-02-16] MEDS: LORATADINE 10 MG TABLET PO SCH (08:28)
[2019-02-16] MEDS: MEGESTROL 400 MG/10 ML UDCUP PO SCH ×2 (08:28→17:20)
[2019-02-16] MEDS: cefTRIAXone 1,000 MG in SYRINGE 1 EACH IV SCH (08:29)
[2019-02-16] MEDS: POLYETHYLENE GLYCOL POWDER 17 GM PACK PO SCH (08:29)
[2019-02-16] MEDS ORDERED: SODIUM CHLORIDE 0.9% 1,000 ML IV PRN (11:45)
[2019-02-16] MEDS: SERTRALINE 25 MG TABLET PO SCH (16:10)
[2019-02-16 21:58] LABS: INR 1.6; PT Patient Result 17.3 SECS
[2019-02-17 03:18] LABS: ABG Base Excess 5.2 MMOL/L (-2.5-2.5); ABG HCO3 28.9 MMOL/L (20-26); ABG Oxygen Saturation 88.4 % (95-100); ABG PCO2 35.1 MM HG (35-48); ABG PH 7.514 (7.35-7.45); ABG PO2 55.5 MM HG (80-95); ABG TCO2 25.7 MMOL/L (23-27)
[2019-02-17 03:19] LABS: Allen Test Positive
[2019-02-17] MEDS ORDERED: FUROSEMIDE 40 MG/4 ML VIAL IV ONE ×2 (04:41→15:30)
[2019-02-17 05:32] LABS: INR 1.5; PT Patient Result 16.4 SECS
[2019-02-17 05:33] LABS: Basophils % 0.1 % (0.0-0.8); Hematocrit 23.7 VOL% (42.0-52.0); Hemoglobin 7.4 GM/DL (14.0-18.0); Immature Granulocytes Absolute 0.14 #; Lymphocytes # 0.3 10*3/uL (1.4-4.0); Lymphocytes % 2.2 % (21.2-54.2); Mean Corpuscular HGB Conc 31.2 GM/DL (32-36); Mean Corpuscular Hemoglobin 29 PG (27-34); Mean Corpuscular Volume 93.3 FL (87-102); Mean Platelet Volume 9.4 FL (9.6-12.0); Monocytes # 0.7 10*3/uL (0.11-0.8); Monocytes % 5.3 % (1.7-12.7); NRBC # 0.04 10*3/uL; Neutrophils # 12.7 10*3/uL (1.4-7.4); Neutrophils % 91.4 % (38.7-73.9); Platelet Count 218 T/CUMM (130-400); Red Blood Count 2.54 MC/CUMM (3.8-5.5); Red Cell Distribution Width 17.2 % (9.3-17.3); White Blood Count 13.9 T/CUMM (4-12)
[2019-02-17 05:44] LABS: Calcium 8.9 MG/DL (8.5-10.1); Osmolality,Calculated 298.4 MOS/KG (273-304)
[2019-02-17 06:09] LABS: Hypochromasia 1+; Lymphocytes 1 % (20-55); Macrocytosis Slight; Platelet Estimate Adequate; Polychromasia Slight; Segmented Neutrophils 93 % (50-85); Total Cells Counted 100
[2019-02-17] MEDS: ALBUTEROL/IPRATROPIUM 3 ML NEB RESP TX SCH ×4 (06:49→19:01)
[2019-02-17] MEDS: CARVEDILOL 3.125 MG TABLET PO SCH (10:05)
[2019-02-17] MEDS: FUROSEMIDE 40 MG/4 ML VIAL IV SCH (10:05)
[2019-02-17] MEDS: LORATADINE 10 MG TABLET PO SCH (10:05)
[2019-02-17] MEDS: FERROUS SULFATE 325 MG TABLET PO SCH (10:06)
[2019-02-17] MEDS: DOCUSATE SODIUM 100 MG CAPSULE PO SCH ×2 (10:06→21:33)
[2019-02-17] MEDS: PANTOPRAZOLE 40 MG TABLET PO SCH (10:06)
[2019-02-17] MEDS: POLYETHYLENE GLYCOL POWDER 17 GM PACK PO SCH (10:06)
[2019-02-17] MEDS: ASCORBIC ACID 500 MG TABLET PO SCH ×2 (10:06→21:33)
[2019-02-17] MEDS: TAMSULOSIN 0.4 MG CAPSULE PO SCH (10:06)
[2019-02-17] MEDS: SERTRALINE 25 MG TABLET PO SCH (10:06)
[2019-02-17] MEDS: cefTRIAXone 1,000 MG in SYRINGE 1 EACH IV SCH (10:06)
[2019-02-17] MEDS: MEGESTROL 400 MG/10 ML UDCUP PO SCH ×2 (10:07→17:11)
[2019-02-17 10:43] LABS: Lymphocytes,Pleural Fluid 12 %; Monocytes,Pleural Fluid 3 %; Neutrophils,Pleural Fluid 85 %
[2019-02-17 10:45] LABS: RBC,Pleural Fluid > 100000 T/CUMM
[2019-02-17] MEDS ORDERED: SODIUM CHLORIDE 0.9% 1,000 ML IV PRN (11:02)
[2019-02-17 11:15] LABS: Total Protein,Body Fluid 4.4 G/DL
[2019-02-17 12:03] LABS: Free T4 (Free Thyroxine) 1.59 NG/DL (0.76-1.46); Thyroid Stimulating Hormone 1.93 uIU/ml (0.358-3.74)
[2019-02-17 12:29] LABS: Bilirubin,Direct 0.17 MG/DL (0.0-0.20); Bilirubin,Indirect 0.2 MG/DL (0.0-1.0); Bilirubin,Total 0.4 MG/DL (0.2-1.0); Total Protein 6.8 G/DL (6.4-8.3)
[2019-02-17] MEDS: WARFARIN 5 MG TABLET PO SCH (17:10)
[2019-02-18 06:25] LABS: INR 1.8
[2019-02-18 06:39] LABS: Basophils % 0.1 % (0.0-0.8); Eosinophils % 0.1 % (0.00-10.9); Hematocrit 29.8 VOL% (42.0-52.0); Immature Granulocytes % 1.1 %; Immature Granulocytes Absolute 0.14 #; Lymphocytes # 0.4 10*3/uL (1.4-4.0); Lymphocytes % 2.8 % (21.2-54.2); Mean Corpuscular HGB Conc 32.6 GM/DL (32-36); Mean Corpuscular Hemoglobin 30 PG (27-34); Mean Corpuscular Volume 91.1 FL (87-102); Mean Platelet Volume 10.1 FL (9.6-12.0); Monocytes # 0.8 10*3/uL (0.11-0.8); NRBC # 0.09 10*3/uL; Neutrophils # 11.4 10*3/uL (1.4-7.4); Neutrophils % 89.9 % (38.7-73.9); Platelet Count 203 T/CUMM (130-400); Red Cell Distribution Width 16.6 % (9.3-17.3); White Blood Count 12.7 T/CUMM (4-12)
[2019-02-18 06:46] LABS: Potassium 3.6 MMOL/L (3.5-5.1)
[2019-02-18 07:01] LABS: Red Blood Count 3.27 MC/CUMM (3.8-5.5)
[2019-02-18 07:02] LABS: Hemoglobin 9.7 GM/DL (14.0-18.0)
[2019-02-18] MEDS ORDERED: SODIUM CHLORIDE 0.9% 1,000 ML IV PRN (07:21)
[2019-02-18 07:41] LABS: Ovalocytes Few; Platelet Estimate Adequate; Polychromasia Few; Segmented Neutrophils 96 % (50-85); Target Cells Slight; Total Cells Counted 100
[2019-02-18] MEDS: ALBUTEROL/IPRATROPIUM 3 ML NEB RESP TX SCH ×4 (07:43→19:30)
[2019-02-18] MEDS: ASCORBIC ACID 500 MG TABLET PO SCH ×2 (09:39→20:23)
[2019-02-18] MEDS: FERROUS SULFATE 325 MG TABLET PO SCH (09:39)
[2019-02-18] MEDS: LORATADINE 10 MG TABLET PO SCH (09:39)
[2019-02-18] MEDS: DOCUSATE SODIUM 100 MG CAPSULE PO SCH ×2 (09:39→20:24)
[2019-02-18] MEDS: SERTRALINE 25 MG TABLET PO SCH (09:39)
[2019-02-18] MEDS: TAMSULOSIN 0.4 MG CAPSULE PO SCH (09:39)
[2019-02-18] MEDS: MEGESTROL 400 MG/10 ML UDCUP PO SCH ×2 (09:39→17:41)
[2019-02-18] MEDS: PANTOPRAZOLE 40 MG TABLET PO SCH (09:39)
[2019-02-18] MEDS: FUROSEMIDE 40 MG/4 ML VIAL IV SCH (09:40)
[2019-02-18] MEDS: POLYETHYLENE GLYCOL POWDER 17 GM PACK PO SCH (09:40)
[2019-02-18] MEDS: CARVEDILOL 3.125 MG TABLET PO SCH (12:28)
[2019-02-18] MEDS: WARFARIN 5 MG TABLET PO SCH (17:41)
[2019-02-18 19:38] LABS: Hematocrit 36.4 VOL% (42.0-52.0); Hemoglobin 11.6 GM/DL (14.0-18.0)
[2019-02-18] MEDS ORDERED: DEXTROSE 50% 25 GM/50 ML SYRINGE IV PRN (21:53)
[2019-02-18] MEDS ORDERED: GLUCAGON 1 MG VIAL IM PRN (21:53)
[2019-02-19 04:39] LABS: Basophils % 0.1 % (0.0-0.8); Eosinophils % 0.1 % (0.00-10.9); Hematocrit 35.4 VOL% (42.0-52.0); Hemoglobin 11.5 GM/DL (14.0-18.0); Immature Granulocytes % 1.1 %; Immature Granulocytes Absolute 0.14 #; Lymphocytes # 0.3 10*3/uL (1.4-4.0); Lymphocytes % 2.6 % (21.2-54.2); Mean Corpuscular HGB Conc 32.5 GM/DL (32-36); Mean Corpuscular Hemoglobin 29 PG (27-34); Mean Corpuscular Volume 90.5 FL (87-102); Mean Platelet Volume 9.9 FL (9.6-12.0); Monocytes # 0.8 10*3/uL (0.11-0.8); Monocytes % 5.8 % (1.7-12.7); NRBC # 0.02 10*3/uL; Neutrophils # 11.7 10*3/uL (1.4-7.4); Neutrophils % 90.3 % (38.7-73.9); Platelet Count 184 T/CUMM (130-400); Red Blood Count 3.91 MC/CUMM (3.8-5.5); Red Cell Distribution Width 16.2 % (9.3-17.3); White Blood Count 12.9 T/CUMM (4-12)
[2019-02-19 05:36] LABS: Calcium 8.7 MG/DL (8.5-10.1); Free T4 (Free Thyroxine) 1.57 NG/DL (0.76-1.46); Potassium 3.6 MMOL/L (3.5-5.1)
[2019-02-19 05:44] LABS: Anisocytosis Slight; Eosinophils 1 % (0-10); Lymphocytes 3 % (20-55); Macrocytosis Slight; Platelet Estimate Adequate; Segmented Neutrophils 90 % (50-85); Total Cells Counted 100
[2019-02-19] MEDS: ALBUTEROL/IPRATROPIUM 3 ML NEB RESP TX SCH ×4 (07:50→20:02)
[2019-02-19] MEDS: LORATADINE 10 MG TABLET PO SCH (08:36)
[2019-02-19] MEDS: ASCORBIC ACID 500 MG TABLET PO SCH ×2 (08:36→20:31)
[2019-02-19] MEDS: TAMSULOSIN 0.4 MG CAPSULE PO SCH (08:36)
[2019-02-19] MEDS: CARVEDILOL 3.125 MG TABLET PO SCH (08:36)
[2019-02-19] MEDS: DOCUSATE SODIUM 100 MG CAPSULE PO SCH ×2 (08:36→20:31)
[2019-02-19] MEDS: FERROUS SULFATE 325 MG TABLET PO SCH (08:36)
[2019-02-19] MEDS: MEGESTROL 400 MG/10 ML UDCUP PO SCH ×2 (08:37→17:20)
[2019-02-19] MEDS: INSULIN REGULAR 100 UNIT/ML SUBCUT SCH (08:37)
[2019-02-19] MEDS: POLYETHYLENE GLYCOL POWDER 17 GM PACK PO SCH (08:37)
[2019-02-19] MEDS: SERTRALINE 25 MG TABLET PO SCH (08:37)
[2019-02-19] MEDS: FUROSEMIDE 40 MG/4 ML VIAL IV SCH (08:37)
[2019-02-19] MEDS: PANTOPRAZOLE 40 MG TABLET PO SCH (08:37)
[2019-02-19] MEDS: LOSARTAN 25 MG TABLET PO SCH (12:30)
[2019-02-19] MEDS: WARFARIN 5 MG TABLET PO SCH (20:31)
[2019-02-20 05:05] LABS: Basophils % 0.1 % (0.0-0.8); Eosinophils % 0.1 % (0.00-10.9); Hematocrit 35.1 VOL% (42.0-52.0); Hemoglobin 11.2 GM/DL (14.0-18.0); INR 2.8; Immature Granulocytes % 1.2 %; Immature Granulocytes Absolute 0.14 #; Lymphocytes # 0.4 10*3/uL (1.4-4.0); Lymphocytes % 3.5 % (21.2-54.2); Mean Corpuscular HGB Conc 31.9 GM/DL (32-36); Mean Corpuscular Hemoglobin 30 PG (27-34); Mean Corpuscular Volume 92.9 FL (87-102); Mean Platelet Volume 9.8 FL (9.6-12.0); Monocytes # 0.7 10*3/uL (0.11-0.8); Monocytes % 5.9 % (1.7-12.7); Neutrophils # 10.6 10*3/uL (1.4-7.4); Neutrophils % 89.2 % (38.7-73.9); Platelet Count 198 T/CUMM (130-400); Red Blood Count 3.78 MC/CUMM (3.8-5.5); Red Cell Distribution Width 16.6 % (9.3-17.3); White Blood Count 11.8 T/CUMM (4-12)
[2019-02-20 05:11] LABS: PT Patient Result 30.3 SECS
[2019-02-20 05:26] LABS: Osmolality,Calculated 295.1 MOS/KG (273-304); Potassium 3.6 MMOL/L (3.5-5.1)
[2019-02-20 06:15] LABS: Anisocytosis 1+; Band Neutrophils 2 % (0-10); Lymphocytes 4 % (20-55); Segmented Neutrophils 93 % (50-85); Total Cells Counted 100
[2019-02-20 06:16] LABS: Hypochromasia 1+; Platelet Estimate Adequate
[2019-02-20] MEDS: ALBUTEROL/IPRATROPIUM 3 ML NEB RESP TX SCH ×4 (07:14→20:56)
[2019-02-20] MEDS: INSULIN REGULAR 100 UNIT/ML SUBCUT SCH (08:33)
[2019-02-20] MEDS: PANTOPRAZOLE 40 MG TABLET PO SCH (09:30)
[2019-02-20] MEDS: LORATADINE 10 MG TABLET PO SCH (09:30)
[2019-02-20] MEDS: TAMSULOSIN 0.4 MG CAPSULE PO SCH (09:30)
[2019-02-20] MEDS: ASCORBIC ACID 500 MG TABLET PO SCH ×2 (09:30→20:55)
[2019-02-20] MEDS: SERTRALINE 25 MG TABLET PO SCH (09:30)
[2019-02-20] MEDS: DOCUSATE SODIUM 100 MG CAPSULE PO SCH ×2 (09:30→20:55)
[2019-02-20] MEDS: MEGESTROL 400 MG/10 ML UDCUP PO SCH ×2 (09:31→17:16)
[2019-02-20] MEDS: POLYETHYLENE GLYCOL POWDER 17 GM PACK PO SCH (09:31)
[2019-02-20] MEDS: FUROSEMIDE 40 MG/4 ML VIAL IV SCH (09:31)
[2019-02-20] MEDS: FERROUS SULFATE 325 MG TABLET PO SCH (09:31)
[2019-02-20] MEDS: LOSARTAN 25 MG TABLET PO SCH (09:31)
[2019-02-20] MEDS: CARVEDILOL 3.125 MG TABLET PO SCH (09:31)
[2019-02-20] MEDS: WARFARIN 5 MG TABLET PO SCH (17:16)
[2019-02-21 05:02] LABS: Basophils % 0.1 % (0.0-0.8); Eosinophils % 0.2 % (0.00-10.9); Hemoglobin 11.9 GM/DL (14.0-18.0); Immature Granulocytes % 0.9 %; Lymphocytes # 0.4 10*3/uL (1.4-4.0); Lymphocytes % 3.7 % (21.2-54.2); Mean Corpuscular HGB Conc 32.2 GM/DL (32-36); Mean Corpuscular Hemoglobin 30 PG (27-34); Mean Corpuscular Volume 91.8 FL (87-102); Mean Platelet Volume 9.7 FL (9.6-12.0); Monocytes # 0.8 10*3/uL (0.11-0.8); Monocytes % 6.8 % (1.7-12.7); NRBC # 0.02 10*3/uL; Neutrophils # 9.8 10*3/uL (1.4-7.4); Neutrophils % 88.3 % (38.7-73.9); Platelet Count 204 T/CUMM (130-400); Red Blood Count 4.03 MC/CUMM (3.8-5.5); Red Cell Distribution Width 16.8 % (9.3-17.3); White Blood Count 11.1 T/CUMM (4-12)
[2019-02-21 05:05] LABS: INR 4.5
[2019-02-21 05:18] LABS: PT Patient Result 48.2 SECS
[2019-02-21 05:27] LABS: Calcium 8.5 MG/DL (8.5-10.1); Osmolality,Calculated 294.3 MOS/KG (273-304); Potassium 3.8 MMOL/L (3.5-5.1)
[2019-02-21 05:53] LABS: Lymphocytes 5 % (20-55); Segmented Neutrophils 90 % (50-85); Total Cells Counted 100
[2019-02-21 05:54] LABS: Anisocytosis Slight
[2019-02-21 05:55] LABS: Target Cells Slight
[2019-02-21 05:56] LABS: Microcytosis Slight
[2019-02-21 05:57] LABS: Platelet Estimate Normal; Spherocytes Slight
[2019-02-21] MEDS: ALBUTEROL/IPRATROPIUM 3 ML NEB RESP TX SCH ×4 (07:09→19:39)
[2019-02-21] MEDS: INSULIN REGULAR 100 UNIT/ML SUBCUT SCH (07:55)
[2019-02-21] MEDS: CARVEDILOL 3.125 MG TABLET PO SCH (08:39)
[2019-02-21] MEDS: TAMSULOSIN 0.4 MG CAPSULE PO SCH (08:39)
[2019-02-21] MEDS: DOCUSATE SODIUM 100 MG CAPSULE PO SCH ×2 (08:40→22:01)
[2019-02-21] MEDS: LORATADINE 10 MG TABLET PO SCH (08:40)
[2019-02-21] MEDS: FERROUS SULFATE 325 MG TABLET PO SCH (08:40)
[2019-02-21] MEDS: ASCORBIC ACID 500 MG TABLET PO SCH ×2 (08:40→22:01)
[2019-02-21] MEDS: LOSARTAN 25 MG TABLET PO SCH (08:40)
[2019-02-21] MEDS: PANTOPRAZOLE 40 MG TABLET PO SCH (08:40)
[2019-02-21] MEDS: MEGESTROL 400 MG/10 ML UDCUP PO SCH ×2 (08:41→16:14)
[2019-02-21] MEDS: SERTRALINE 25 MG TABLET PO SCH (08:41)
[2019-02-21] MEDS: POLYETHYLENE GLYCOL POWDER 17 GM PACK PO SCH (08:41)
[2019-02-21] MEDS: FUROSEMIDE 40 MG/4 ML VIAL IV SCH (08:41)
[2019-02-21] MEDS ORDERED: SODIUM CHLORIDE 0.9% 1,000 ML IV PRN (13:48)
[2019-02-22 03:02] LABS: INR 2.5
[2019-02-22 03:08] LABS: PT Patient Result 27.1 SECS
[2019-02-22 05:35] LABS: Calcium 8.9 MG/DL (8.5-10.1); Osmolality,Calculated 294.1 MOS/KG (273-304); Potassium 3.9 MMOL/L (3.5-5.1)
[2019-02-22 05:44] LABS: INR 2.6
[2019-02-22 05:50] LABS: PT Patient Result 28.3 SECS; Partial Thromboplastin Time 48.3 SECS (0-40)
[2019-02-22 05:54] LABS: Basophils % 0.1 % (0.0-0.8); Eosinophils % 0.2 % (0.00-10.9); Hematocrit 33.5 VOL% (42.0-52.0); Hemoglobin 10.5 GM/DL (14.0-18.0); Immature Granulocytes % 0.9 %; Immature Granulocytes Absolute 0.09 #; Lymphocytes # 0.4 10*3/uL (1.4-4.0); Lymphocytes % 4.3 % (21.2-54.2); Mean Corpuscular HGB Conc 31.3 GM/DL (32-36); Mean Corpuscular Hemoglobin 30 PG (27-34); Mean Corpuscular Volume 94.1 FL (87-102); Mean Platelet Volume 9.5 FL (9.6-12.0); Monocytes # 0.7 10*3/uL (0.11-0.8); Monocytes % 7.1 % (1.7-12.7); Neutrophils # 8.8 10*3/uL (1.4-7.4); Neutrophils % 87.4 % (38.7-73.9); Platelet Count 185 T/CUMM (130-400); Red Blood Count 3.56 MC/CUMM (3.8-5.5); Red Cell Distribution Width 16.6 % (9.3-17.3); White Blood Count 10.1 T/CUMM (4-12)
[2019-02-22] MEDS ORDERED: BENZONATATE 100 MG CAPSULE PO ONE (07:00)
[2019-02-22] MEDS ORDERED: MEPERIDINE 50 MG/1 ML VIAL IM ONE (07:00)
[2019-02-22] MEDS ORDERED: diphenhydrAMINE 50 MG/1 ML VIAL IM ONE (07:00)
[2019-02-22] MEDS: ALBUTEROL/IPRATROPIUM 3 ML NEB RESP TX SCH ×4 (07:02→19:06)
[2019-02-22] MEDS ORDERED: SODIUM CHLORIDE 0.9% 1,000 ML IV PRN (07:20)
[2019-02-22 07:22] LABS: Hypochromasia 1+; Lymphocytes 3 % (20-55); Microcytosis Slight; Platelet Estimate Adequate; Segmented Neutrophils 89 % (50-85); Total Cells Counted 100
[2019-02-22] MEDS ORDERED: LIDOCAINE 2% 20 ML VIAL RESP TX ONE (08:30)
[2019-02-22] MEDS ORDERED: LIDOCAINE 1% 20 ML VIAL MISC INJ ONE (08:30)
[2019-02-22] MEDS ORDERED: LIDOCAINE 2% VISCOUS 100 ML BOTTLE SWISH/SPIT ONE (08:30)
[2019-02-22] MEDS ORDERED: EPINEPHrine 1 MG/ML VIAL ET ONE (11:06)
[2019-02-22] MEDS: INSULIN REGULAR 100 UNIT/ML SUBCUT SCH (11:34)
[2019-02-22] MEDS ORDERED: EPINEPHrine 1 MG/ML VIAL ONE (11:52)
[2019-02-22] MEDS: SERTRALINE 25 MG TABLET PO SCH (14:57)
[2019-02-22] MEDS: ASCORBIC ACID 500 MG TABLET PO SCH ×2 (14:58→20:40)
[2019-02-22] MEDS: LORATADINE 10 MG TABLET PO SCH (14:58)
[2019-02-22] MEDS: DOCUSATE SODIUM 100 MG CAPSULE PO SCH ×2 (14:58→20:41)
[2019-02-22] MEDS: FUROSEMIDE 40 MG/4 ML VIAL IV SCH ×2 (14:58→16:05)
[2019-02-22] MEDS: MEGESTROL 400 MG/10 ML UDCUP PO SCH ×2 (14:58→16:43)
[2019-02-22] MEDS: PANTOPRAZOLE 40 MG TABLET PO SCH (14:58)
[2019-02-22] MEDS: LOSARTAN 25 MG TABLET PO SCH (14:59)
[2019-02-22] MEDS: POLYETHYLENE GLYCOL POWDER 17 GM PACK PO SCH (14:59)
[2019-02-22] MEDS: TAMSULOSIN 0.4 MG CAPSULE PO SCH (14:59)
[2019-02-22] MEDS: FERROUS SULFATE 325 MG TABLET PO SCH (14:59)
[2019-02-22] MEDS: CARVEDILOL 3.125 MG TABLET PO SCH (14:59)
[2019-02-22 19:05] LABS: PT Patient Result 21.5 SECS
[2019-02-22] MEDS ORDERED: WARFARIN 5 MG TABLET PO ONE (21:00)
[2019-02-23 04:31] LABS: Basophils % 0.2 % (0.0-0.8); Eosinophils % 0.1 % (0.00-10.9); Hematocrit 34.7 VOL% (42.0-52.0); Hemoglobin 10.7 GM/DL (14.0-18.0); Immature Granulocytes % 1.1 %; Immature Granulocytes Absolute 0.14 #; Lymphocytes # 0.4 10*3/uL (1.4-4.0); Mean Corpuscular HGB Conc 30.8 GM/DL (32-36); Mean Corpuscular Hemoglobin 29 PG (27-34); Mean Corpuscular Volume 94.3 FL (87-102); Mean Platelet Volume 10.2 FL (9.6-12.0); Monocytes # 0.8 10*3/uL (0.11-0.8); Monocytes % 6.4 % (1.7-12.7); Neutrophils # 11.7 10*3/uL (1.4-7.4); Neutrophils % 89.2 % (38.7-73.9); Platelet Count 196 T/CUMM (130-400); Red Blood Count 3.68 MC/CUMM (3.8-5.5); Red Cell Distribution Width 16.7 % (9.3-17.3); White Blood Count 13.1 T/CUMM (4-12)
[2019-02-23 04:40] LABS: INR 2.7
[2019-02-23 04:41] LABS: PT Patient Result 29.5 SECS
[2019-02-23 04:59] LABS: Calcium 8.9 MG/DL (8.5-10.1); Osmolality,Calculated 294.3 MOS/KG (273-304)
[2019-02-23 05:45] LABS: Band Neutrophils 3 % (0-10); Lymphocytes 6 % (20-55); Segmented Neutrophils 87 % (50-85); Total Cells Counted 100
[2019-02-23 05:46] LABS: Anisocytosis 1+; Target Cells Few
[2019-02-23 05:47] LABS: Platelet Estimate Adequate
[2019-02-23] MEDS: ALBUTEROL/IPRATROPIUM 3 ML NEB RESP TX SCH ×4 (07:35→21:21)
[2019-02-23] MEDS: INSULIN REGULAR 100 UNIT/ML SUBCUT SCH (07:51)
[2019-02-23] MEDS: TAMSULOSIN 0.4 MG CAPSULE PO SCH (08:23)
[2019-02-23] MEDS: ASCORBIC ACID 500 MG TABLET PO SCH ×2 (08:23→21:08)
[2019-02-23] MEDS: FERROUS SULFATE 325 MG TABLET PO SCH (08:23)
[2019-02-23] MEDS: DOCUSATE SODIUM 100 MG CAPSULE PO SCH ×2 (08:23→21:08)
[2019-02-23] MEDS: LORATADINE 10 MG TABLET PO SCH (08:23)
[2019-02-23] MEDS: CARVEDILOL 3.125 MG TABLET PO SCH (08:23)
[2019-02-23] MEDS: PANTOPRAZOLE 40 MG TABLET PO SCH (08:23)
[2019-02-23] MEDS: LOSARTAN 25 MG TABLET PO SCH (08:23)
[2019-02-23] MEDS: MEGESTROL 400 MG/10 ML UDCUP PO SCH ×2 (08:23→17:48)
[2019-02-23] MEDS: FUROSEMIDE 40 MG/4 ML VIAL IV SCH ×2 (08:24→17:47)
[2019-02-23] MEDS: POLYETHYLENE GLYCOL POWDER 17 GM PACK PO SCH (08:24)
[2019-02-23] MEDS ORDERED: WARFARIN 2.5 MG TABLET PO SCH (18:00)
[2019-02-24] MEDS ORDERED: ALBUTEROL 2.5 MG/3 ML NEB RESP TX SCH (03:00)
[2019-02-24 06:08] LABS: Basophils % 0.2 % (0.0-0.8); Eosinophils % 0.1 % (0.00-10.9); Hemoglobin 11.2 GM/DL (14.0-18.0); Immature Granulocytes % 0.9 %; Immature Granulocytes Absolute 0.11 #; Lymphocytes # 0.5 10*3/uL (1.4-4.0); Lymphocytes % 3.6 % (21.2-54.2); Mean Corpuscular HGB Conc 31.1 GM/DL (32-36); Mean Corpuscular Hemoglobin 29 PG (27-34); Mean Corpuscular Volume 93.8 FL (87-102); Mean Platelet Volume 10.1 FL (9.6-12.0); Monocytes # 0.9 10*3/uL (0.11-0.8); Monocytes % 7.3 % (1.7-12.7); Neutrophils # 11.2 10*3/uL (1.4-7.4); Neutrophils % 87.9 % (38.7-73.9); Platelet Count 221 T/CUMM (130-400); Red Blood Count 3.84 MC/CUMM (3.8-5.5); Red Cell Distribution Width 16.6 % (9.3-17.3); White Blood Count 12.7 T/CUMM (4-12)
[2019-02-24 06:29] LABS: Calcium 9.2 MG/DL (8.5-10.1); Osmolality,Calculated 296.1 MOS/KG (273-304); Potassium 3.8 MMOL/L (3.5-5.1)
[2019-02-24 06:32] LABS: INR 3.1
[2019-02-24 06:34] LABS: Band Neutrophils 1 % (0-10); Hypochromasia 1+; Lymphocytes 2 % (20-55); Segmented Neutrophils 91 % (50-85); Total Cells Counted 100
[2019-02-24] MEDS ORDERED: ALBUTEROL 2.5 MG/3 ML NEB RESP TX PRN (06:34)
[2019-02-24 06:35] LABS: Anisocytosis 1+; Microcytosis 1+; Platelet Estimate Normal; Target Cells Few
[2019-02-24 06:36] LABS: PT Patient Result 33.5 SECS
[2019-02-24] MEDS: ALBUTEROL/IPRATROPIUM 3 ML NEB RESP TX SCH ×4 (07:39→20:09)
[2019-02-24] MEDS: INSULIN REGULAR 100 UNIT/ML SUBCUT SCH (07:53)
[2019-02-24] MEDS: MEGESTROL 400 MG/10 ML UDCUP PO SCH ×2 (08:43→16:50)
[2019-02-24] MEDS: DOCUSATE SODIUM 100 MG CAPSULE PO SCH ×2 (08:43→23:25)
[2019-02-24] MEDS: ASCORBIC ACID 500 MG TABLET PO SCH (08:44)
[2019-02-24] MEDS: LOSARTAN 25 MG TABLET PO SCH (08:44)
[2019-02-24] MEDS: CARVEDILOL 3.125 MG TABLET PO SCH (08:44)
[2019-02-24] MEDS: FERROUS SULFATE 325 MG TABLET PO SCH (08:44)
[2019-02-24] MEDS: LORATADINE 10 MG TABLET PO SCH (08:45)
[2019-02-24] MEDS: FUROSEMIDE 40 MG/4 ML VIAL IV SCH ×2 (08:45→16:50)
[2019-02-24] MEDS: POLYETHYLENE GLYCOL POWDER 17 GM PACK PO SCH (08:45)
[2019-02-24] MEDS: PANTOPRAZOLE 40 MG TABLET PO SCH (08:45)
[2019-02-24] MEDS: TAMSULOSIN 0.4 MG CAPSULE PO SCH (08:45)
[2019-02-25 04:25] LABS: Basophils % 0.1 % (0.0-0.8); Eosinophils % 0.1 % (0.00-10.9); Hematocrit 33.6 VOL% (42.0-52.0); Hemoglobin 10.6 GM/DL (14.0-18.0); Immature Granulocytes % 1.1 %; Immature Granulocytes Absolute 0.14 #; Lymphocytes # 0.5 10*3/uL (1.4-4.0); Lymphocytes % 3.7 % (21.2-54.2); Mean Corpuscular HGB Conc 31.5 GM/DL (32-36); Mean Corpuscular Hemoglobin 29 PG (27-34); Mean Corpuscular Volume 92.3 FL (87-102); Mean Platelet Volume 10.4 FL (9.6-12.0); Monocytes # 0.9 10*3/uL (0.11-0.8); Monocytes % 7.1 % (1.7-12.7); Neutrophils # 10.9 10*3/uL (1.4-7.4); Neutrophils % 87.9 % (38.7-73.9); Platelet Count 212 T/CUMM (130-400); Red Blood Count 3.64 MC/CUMM (3.8-5.5); Red Cell Distribution Width 16.6 % (9.3-17.3); White Blood Count 12.4 T/CUMM (4-12)
[2019-02-25 04:40] LABS: INR 3.8
[2019-02-25 04:45] LABS: Albumin 1.7 G/DL (3.4-5.0); Bilirubin,Total 0.7 MG/DL (0.2-1.0); Calcium 9.1 MG/DL (8.5-10.1); Osmolality,Calculated 301.1 MOS/KG (273-304); Potassium 4.2 MMOL/L (3.5-5.1); Total Protein 6.3 G/DL (6.4-8.3)
[2019-02-25 04:48] LABS: PT Patient Result 40.5 SECS
[2019-02-25 05:05] LABS: Lymphocytes 1 % (20-55); Platelet Estimate Adequate; Polychromasia Few; Segmented Neutrophils 95 % (50-85); Total Cells Counted 100
[2019-02-25] MEDS: ALBUTEROL/IPRATROPIUM 3 ML NEB RESP TX SCH ×4 (07:28→20:00)
[2019-02-25] MEDS: FUROSEMIDE 40 MG/4 ML VIAL IV SCH ×2 (09:57→16:23)
[2019-02-25] MEDS: MEGESTROL 400 MG/10 ML UDCUP PO SCH ×2 (09:57→16:22)
[2019-02-25] MEDS: DOCUSATE SODIUM 100 MG CAPSULE PO SCH ×2 (09:57→21:49)
[2019-02-25] MEDS: LORATADINE 10 MG TABLET PO SCH (09:57)
[2019-02-25] MEDS: CARVEDILOL 3.125 MG TABLET PO SCH (09:57)
[2019-02-25] MEDS: FERROUS SULFATE 325 MG TABLET PO SCH (09:57)
[2019-02-25] MEDS: TAMSULOSIN 0.4 MG CAPSULE PO SCH (09:57)
[2019-02-25] MEDS: PANTOPRAZOLE 40 MG TABLET PO SCH (09:57)
[2019-02-25] MEDS: POLYETHYLENE GLYCOL POWDER 17 GM PACK PO SCH (09:58)
[2019-02-25] MEDS: ALBUMIN 25% 25 GM in PREMIX 1 EACH IV SCH ×2 (13:28→21:50)
[2019-02-25] MEDS: INSULIN REGULAR 100 UNIT/ML SUBCUT SCH (14:13)
[2019-02-26] MEDS: ALBUMIN 25% 25 GM in PREMIX 1 EACH IV SCH (05:56)
[2019-02-26 06:32] LABS: Basophils % 0.1 % (0.0-0.8); Eosinophils % 0.1 % (0.00-10.9); Hemoglobin 10.6 GM/DL (14.0-18.0); Immature Granulocytes % 0.7 %; Immature Granulocytes Absolute 0.08 #; Lymphocytes # 0.5 10*3/uL (1.4-4.0); Lymphocytes % 4.1 % (21.2-54.2); Mean Corpuscular HGB Conc 31.2 GM/DL (32-36); Mean Corpuscular Hemoglobin 29 PG (27-34); Mean Corpuscular Volume 93.2 FL (87-102); Mean Platelet Volume 10.1 FL (9.6-12.0); Monocytes # 0.8 10*3/uL (0.11-0.8); Monocytes % 7.2 % (1.7-12.7); Neutrophils # 9.9 10*3/uL (1.4-7.4); Neutrophils % 87.8 % (38.7-73.9); Platelet Count 236 T/CUMM (130-400); Red Blood Count 3.65 MC/CUMM (3.8-5.5); Red Cell Distribution Width 16.5 % (9.3-17.3); White Blood Count 11.3 T/CUMM (4-12)
[2019-02-26 06:50] LABS: INR 3.3
[2019-02-26 07:04] LABS: Lymphocytes 4 % (20-55); Segmented Neutrophils 89 % (50-85)
[2019-02-26 07:05] LABS: Platelet Estimate Normal; Total Cells Counted 100
[2019-02-26 07:08] LABS: PT Patient Result 35.5 SECS
[2019-02-26 07:25] VITALS: BP 105/65
[2019-02-26] MEDS: ALBUTEROL/IPRATROPIUM 3 ML NEB RESP TX SCH ×2 (07:27→10:47)
[2019-02-26] MEDS: POLYETHYLENE GLYCOL POWDER 17 GM PACK PO SCH (08:57)
[2019-02-26] MEDS: FUROSEMIDE 40 MG/4 ML VIAL IV SCH (08:58)
[2019-02-26] MEDS: TAMSULOSIN 0.4 MG CAPSULE PO SCH (08:58)
[2019-02-26] MEDS: PANTOPRAZOLE 40 MG TABLET PO SCH (08:58)
[2019-02-26] MEDS: FERROUS SULFATE 325 MG TABLET PO SCH (08:58)
[2019-02-26] MEDS: LORATADINE 10 MG TABLET PO SCH (08:58)
[2019-02-26] MEDS: MEGESTROL 400 MG/10 ML UDCUP PO SCH (08:58)
[2019-02-26] MEDS: DOCUSATE SODIUM 100 MG CAPSULE PO SCH (08:58)
[2019-02-26] MEDS: CARVEDILOL 3.125 MG TABLET PO SCH (09:12)
[2019-02-26] MEDS: INSULIN REGULAR 100 UNIT/ML SUBCUT SCH (11:05)
== END 2019-02-26 11:43 | disposition home health service (06) | DRG 193 ==
LOC: N.ED 09:20 → N.EDINP 09:20 → N.2E 14:13
PROVIDERS: ADMIT Internal Medicine; ATTEND Internal Medicine
PROC: IRTHORA (2019-02-17 08:30)

== ENCOUNTER 2019-03-04 13:50 | Inpatient (IN) ==
[2019-03-04 14:23] LABS: Basophils % 0.1 % (0.0-0.8); Hematocrit 32.5 VOL% (42.0-52.0); Hemoglobin 10.1 GM/DL (14.0-18.0); Immature Granulocytes % 1.7 %; Immature Granulocytes Absolute 0.25 #; Lymphocytes # 0.7 10*3/uL (1.4-4.0); Lymphocytes % 4.4 % (21.2-54.2); Mean Corpuscular HGB Conc 31.1 GM/DL (32-36); Mean Corpuscular Volume 93.7 FL (87-102); Mean Platelet Volume 9.8 FL (9.6-12.0); Monocytes % 6.7 % (1.7-12.7); Neutrophils % 87.1 % (38.7-73.9); Platelet Count 314 T/CUMM (130-400); Red Blood Count 3.47 MC/CUMM (3.8-5.5); White Blood Count 14.7 T/CUMM (4-12)
[2019-03-04 14:50] LABS: Alanine Aminotransferase 22 U/L (16-61); Albumin 2.3 G/DL (3.4-5.0); Alkaline Phosphatase 163 U/L (45-117); Aspartate Amino Transferase 29 U/L (0-37); Blood Urea Nitrogen 66 MG/DL (7-18); Glucose 118 MG/DL (74-106); Osmolality,Calculated 302.1 MOS/KG (273-304); Total Protein 6.6 G/DL (6.4-8.3); Troponin I 0.066 NG/ML (0.00-0.045)
[2019-03-04 16:54] LABS: PT Patient Result 10.8 SECS; Partial Thromboplastin Time 33.6 SECS (0-40)
[2019-03-04] MEDS ORDERED: LEVOFLOXACIN INJ 750 MG in PREMIX 1 EACH IV STA (17:15)
[2019-03-04 17:17] LABS: Lymphocytes 5 % (20-55); Platelet Estimate Normal; Segmented Neutrophils 90 % (50-85); Total Cells Counted 100
[2019-03-04] MEDS ORDERED: ACETAMINOPHEN 325 MG TABLET PO PRN (18:08)
[2019-03-04] MEDS ORDERED: ONDANSETRON 4 MG/2 ML VIAL IV PRN (18:08)
[2019-03-04] MEDS ORDERED: MORPHINE 4 MG/1 ML VIAL IV PRN (18:12)
[2019-03-04] MEDS ORDERED: POLYETHYLENE GLYCOL POWDER 17 GM PACK PO PRN (18:15)
[2019-03-04] MEDS ORDERED: SODIUM CHLORIDE 0.45% 1,000 ML IV SCH (18:30)
[2019-03-04 20:19] LABS: Troponin I 0.091 NG/ML (0.00-0.045)
[2019-03-04] MEDS ORDERED: ENOXAPARIN 30 MG/0.3 ML SYRINGE SUBCUT SCH (21:00)
[2019-03-04 21:17] LABS: HIV Antigen/Antibody Result Nonreactive (Nonreactive); Hepatitis B Surface Ag Quant < 0.10 Index; Hepatitis B Surface Ag Result Negative (Negative); Hepatitis C Virus Ab Quant 0.21 Index; Hepatitis C Virus Ab Result Negative (Negative)
[2019-03-04] MEDS: TAMSULOSIN 0.4 MG CAPSULE PO SCH (21:56)
[2019-03-04] MEDS: CARVEDILOL 3.125 MG TABLET PO SCH (21:56)
[2019-03-04] MEDS: BISACODYL 5 MG TABLET PO PRN (21:56)
[2019-03-04] MEDS: DOCUSATE SODIUM 100 MG CAPSULE PO SCH (21:56)
[2019-03-04 21:59] LABS: Troponin I 0.089 NG/ML (0.00-0.045)
[2019-03-04] MEDS: ALBUTEROL/IPRATROPIUM 3 ML NEB RESP TX SCH (22:49)
[2019-03-05] MEDS: ZALEPLON 5 MG CAPSULE PO PRN (00:11)
[2019-03-05 01:44] LABS: Troponin I 0.099 NG/ML (0.00-0.045)
[2019-03-05 05:11] LABS: Basophils % 0.1 % (0.0-0.8); Hematocrit 29.7 VOL% (42.0-52.0); Hemoglobin 9.2 GM/DL (14.0-18.0); Immature Granulocytes % 1.5 %; Immature Granulocytes Absolute 0.24 #; Lymphocytes # 0.7 10*3/uL (1.4-4.0); Mean Corpuscular Volume 92.2 FL (87-102); Mean Platelet Volume 10.1 FL (9.6-12.0); Monocytes % 6.4 % (1.7-12.7); Platelet Count 308 T/CUMM (130-400); Red Blood Count 3.22 MC/CUMM (3.8-5.5); Red Cell Distribution Width 16.8 % (9.3-17.3); White Blood Count 16.2 T/CUMM (4-12)
[2019-03-05 05:14] LABS: INR 3.8
[2019-03-05 05:30] LABS: PT Patient Result 40.9 SECS
[2019-03-05 05:47] LABS: Calcium 9.1 MG/DL (8.5-10.1); Osmolality,Calculated 301.1 MOS/KG (273-304); Risk Ratio 2.59; VLDL CHOLESTEROL 11.2 MG/DL
[2019-03-05 05:57] LABS: Troponin I 0.092 NG/ML (0.00-0.045)
[2019-03-05] MEDS: ALBUTEROL/IPRATROPIUM 3 ML NEB RESP TX SCH ×2 (07:31→20:01)
[2019-03-05 08:55] LABS: Hypochromasia 1+; Lymphocytes 2 % (20-55); Platelet Estimate Normal; Polychromasia Slight; Segmented Neutrophils 92 % (50-85); Total Cells Counted 100
[2019-03-05] MEDS: FERROUS SULFATE 325 MG TABLET PO SCH (09:05)
[2019-03-05] MEDS: CARVEDILOL 3.125 MG TABLET PO SCH ×2 (09:05→16:21)
[2019-03-05] MEDS: DOCUSATE SODIUM 100 MG CAPSULE PO SCH ×2 (09:05→21:51)
[2019-03-05] MEDS: LORATADINE 10 MG TABLET PO SCH (09:06)
[2019-03-05] MEDS: PANTOPRAZOLE 40 MG TABLET PO SCH (09:06)
[2019-03-05] MEDS: FUROSEMIDE 40 MG/4 ML VIAL IV SCH ×2 (09:09→16:22)
[2019-03-05] MEDS: ALBUTEROL 2.5 MG/3 ML NEB RESP TX SCH ×2 (13:48→20:01)
[2019-03-05] MEDS ORDERED: WARFARIN 2.5 MG TABLET PO SCH (18:00)
[2019-03-05] MEDS: TAMSULOSIN 0.4 MG CAPSULE PO SCH (21:51)
[2019-03-06] MEDS: ALBUTEROL 2.5 MG/3 ML NEB RESP TX SCH ×4 (01:18→19:38)
[2019-03-06 05:11] LABS: PT Patient Result 42.7 SECS
[2019-03-06 05:21] LABS: Calcium 9.2 MG/DL (8.5-10.1); Osmolality,Calculated 300.1 MOS/KG (273-304)
[2019-03-06] MEDS: DOCUSATE SODIUM 100 MG CAPSULE PO SCH ×2 (08:39→21:11)
[2019-03-06] MEDS: FUROSEMIDE 40 MG/4 ML VIAL IV SCH ×2 (08:39→16:36)
[2019-03-06] MEDS: LORATADINE 10 MG TABLET PO SCH (08:40)
[2019-03-06] MEDS: CARVEDILOL 3.125 MG TABLET PO SCH ×2 (08:40→16:36)
[2019-03-06] MEDS: PANTOPRAZOLE 40 MG TABLET PO SCH (08:40)
[2019-03-06] MEDS: FERROUS SULFATE 325 MG TABLET PO SCH (08:40)
[2019-03-06] MEDS ORDERED: PHYTONADIONE 10 MG/1 ML AMP SUBCUT ONE (08:51)
[2019-03-06] MEDS: LORazepam 0.5 MG TABLET PO PRN ×2 (11:23→23:27)
[2019-03-06] MEDS: TAMSULOSIN 0.4 MG CAPSULE PO SCH (21:11)
[2019-03-07] MEDS: ALBUTEROL 2.5 MG/3 ML NEB RESP TX SCH ×4 (00:01→20:06)
[2019-03-07] MEDS ORDERED: ALBUTEROL/IPRATROPIUM 3 ML NEB RESP TX ONE (04:09)
[2019-03-07 04:38] LABS: Basophils % 0.2 % (0.0-0.8); Hematocrit 31.1 VOL% (42.0-52.0); Hemoglobin 9.6 GM/DL (14.0-18.0); Immature Granulocytes % 2.2 %; Immature Granulocytes Absolute 0.42 #; Lymphocytes # 0.8 10*3/uL (1.4-4.0); Lymphocytes % 4.1 % (21.2-54.2); Mean Corpuscular HGB Conc 30.9 GM/DL (32-36); Mean Platelet Volume 10.3 FL (9.6-12.0); Monocytes % 5.8 % (1.7-12.7); Neutrophils % 87.7 % (38.7-73.9); Platelet Count 319 T/CUMM (130-400); Red Blood Count 3.31 MC/CUMM (3.8-5.5); Red Cell Distribution Width 17.1 % (9.3-17.3); White Blood Count 19.2 T/CUMM (4-12)
[2019-03-07 04:45] LABS: Calcium 9.3 MG/DL (8.5-10.1); Osmolality,Calculated 303.1 MOS/KG (273-304)
[2019-03-07 06:01] LABS: INR 2.1
[2019-03-07 06:04] LABS: PT Patient Result 22.9 SECS
[2019-03-07 07:19] LABS: Anisocytosis 1+; Band Neutrophils 1 % (0-10); Lymphocytes 5 % (20-55); Macrocytosis 1+; Platelet Estimate Normal; Segmented Neutrophils 90 % (50-85); Total Cells Counted 100
[2019-03-07 07:20] LABS: Giant Platelets Few
[2019-03-07] MEDS: FUROSEMIDE 40 MG/4 ML VIAL IV SCH ×2 (08:46→16:26)
[2019-03-07] MEDS: FERROUS SULFATE 325 MG TABLET PO SCH (08:47)
[2019-03-07] MEDS: PANTOPRAZOLE 40 MG TABLET PO SCH (08:47)
[2019-03-07] MEDS: LORATADINE 10 MG TABLET PO SCH (08:47)
[2019-03-07] MEDS: CARVEDILOL 3.125 MG TABLET PO SCH ×2 (08:47→16:26)
[2019-03-07] MEDS: DOCUSATE SODIUM 100 MG CAPSULE PO SCH ×2 (08:47→20:58)
[2019-03-07] MEDS: LORazepam 0.5 MG TABLET PO PRN (13:50)
[2019-03-07] MEDS: TAMSULOSIN 0.4 MG CAPSULE PO SCH (20:58)
[2019-03-07] MEDS: ZALEPLON 5 MG CAPSULE PO PRN (20:58)
[2019-03-08] MEDS: ALBUTEROL 2.5 MG/3 ML NEB RESP TX SCH ×4 (00:09→20:50)
[2019-03-08] MEDS: LORazepam 0.5 MG TABLET PO PRN (03:41)
[2019-03-08 05:25] LABS: Basophils % 0.1 % (0.0-0.8); Hemoglobin 9.4 GM/DL (14.0-18.0); INR 1.3; Immature Granulocytes % 2.6 %; Immature Granulocytes Absolute 0.45 #; Lymphocytes # 0.7 10*3/uL (1.4-4.0); Lymphocytes % 3.8 % (21.2-54.2); Mean Corpuscular HGB Conc 31.3 GM/DL (32-36); Mean Corpuscular Volume 92.6 FL (87-102); Mean Platelet Volume 10.1 FL (9.6-12.0); Monocytes % 6.1 % (1.7-12.7); Neutrophils % 87.4 % (38.7-73.9); PT Patient Result 13.7 SECS; Platelet Count 327 T/CUMM (130-400); Red Blood Count 3.24 MC/CUMM (3.8-5.5); Red Cell Distribution Width 17.1 % (9.3-17.3); White Blood Count 17.3 T/CUMM (4-12)
[2019-03-08 06:01] LABS: Calcium 9.9 MG/DL (8.5-10.1); Osmolality,Calculated 308.7 MOS/KG (273-304)
[2019-03-08 06:24] LABS: Lymphocytes 3 % (20-55); Metamyelocytes 1 %; Segmented Neutrophils 91 % (50-85); Total Cells Counted 100
[2019-03-08 06:25] LABS: Anisocytosis Slight; Microcytosis Slight; Target Cells Few
[2019-03-08 06:26] LABS: Platelet Estimate Normal; Spherocytes Slight
[2019-03-08] MEDS: FUROSEMIDE 40 MG/4 ML VIAL IV SCH ×2 (08:55→15:59)
[2019-03-08] MEDS: PANTOPRAZOLE 40 MG TABLET PO SCH (08:56)
[2019-03-08] MEDS: FERROUS SULFATE 325 MG TABLET PO SCH (08:56)
[2019-03-08] MEDS: DOCUSATE SODIUM 100 MG CAPSULE PO SCH ×2 (08:56→20:39)
[2019-03-08] MEDS: LORATADINE 10 MG TABLET PO SCH (08:56)
[2019-03-08] MEDS: CARVEDILOL 3.125 MG TABLET PO SCH ×2 (08:56→16:00)
[2019-03-08] MEDS ORDERED: POTASSIUM CHLORIDE 20 MEQ TABLET PO ONE (09:43)
[2019-03-08] MEDS: TAMSULOSIN 0.4 MG CAPSULE PO SCH (20:40)
[2019-03-09] MEDS: ALBUTEROL 2.5 MG/3 ML NEB RESP TX SCH ×4 (01:31→21:05)
[2019-03-09] MEDS: LORazepam 0.5 MG TABLET PO PRN ×3 (02:21→17:22)
[2019-03-09 05:28] LABS: INR 1.3; PT Patient Result 14.3 SECS
[2019-03-09 06:11] LABS: Basophils % 0.2 % (0.0-0.8); Hematocrit 30.9 VOL% (42.0-52.0); Hemoglobin 9.5 GM/DL (14.0-18.0); Immature Granulocytes % 2.7 %; Immature Granulocytes Absolute 0.47 #; Lymphocytes # 0.8 10*3/uL (1.4-4.0); Lymphocytes % 4.6 % (21.2-54.2); Mean Corpuscular HGB Conc 30.7 GM/DL (32-36); Mean Corpuscular Volume 93.6 FL (87-102); Mean Platelet Volume 10.7 FL (9.6-12.0); Monocytes % 7.7 % (1.7-12.7); NRBC # 0.04 10*3/uL; Neutrophils % 84.8 % (38.7-73.9); Platelet Count 300 T/CUMM (130-400); Red Cell Distribution Width 17.2 % (9.3-17.3); White Blood Count 17.1 T/CUMM (4-12)
[2019-03-09 06:34] LABS: Anisocytosis 1+; Band Neutrophils 1 % (0-10); Hypochromasia 1+; Lymphocytes 3 % (20-55); Myelocytes 2 %; Platelet Estimate Adequate; Segmented Neutrophils 91 % (50-85); Total Cells Counted 100
[2019-03-09 06:35] LABS: Calcium 8.8 MG/DL (8.5-10.1); Osmolality,Calculated 304.8 MOS/KG (273-304)
[2019-03-09] MEDS: CARVEDILOL 3.125 MG TABLET PO SCH ×2 (10:18→16:47)
[2019-03-09] MEDS: LORATADINE 10 MG TABLET PO SCH (10:18)
[2019-03-09] MEDS: DOCUSATE SODIUM 100 MG CAPSULE PO SCH ×2 (10:19→21:28)
[2019-03-09] MEDS: PANTOPRAZOLE 40 MG TABLET PO SCH (10:19)
[2019-03-09] MEDS: FERROUS SULFATE 325 MG TABLET PO SCH (10:20)
[2019-03-09] MEDS: FUROSEMIDE 40 MG/4 ML VIAL IV SCH ×2 (10:24→16:49)
[2019-03-09] MEDS: BISACODYL 5 MG TABLET PO PRN (21:28)
[2019-03-09] MEDS: TAMSULOSIN 0.4 MG CAPSULE PO SCH (21:28)
[2019-03-09] MEDS: MEGESTROL 400 MG/10 ML UDCUP PO SCH (21:28)
[2019-03-09] MEDS: ZALEPLON 5 MG CAPSULE PO PRN (21:31)
[2019-03-10] MEDS: ALBUTEROL 2.5 MG/3 ML NEB RESP TX SCH ×4 (01:46→20:05)
[2019-03-10] MEDS: LORazepam 0.5 MG TABLET PO PRN (03:31)
[2019-03-10 06:03] LABS: INR 1.5; PT Patient Result 15.9 SECS
[2019-03-10 06:05] LABS: Basophils % 0.1 % (0.0-0.8); Hematocrit 28.3 VOL% (42.0-52.0); Hemoglobin 8.7 GM/DL (14.0-18.0); Immature Granulocytes % 2.4 %; Immature Granulocytes Absolute 0.37 #; Lymphocytes # 0.7 10*3/uL (1.4-4.0); Lymphocytes % 4.3 % (21.2-54.2); Mean Corpuscular HGB Conc 30.7 GM/DL (32-36); Mean Corpuscular Volume 93.4 FL (87-102); Mean Platelet Volume 10.2 FL (9.6-12.0); Monocytes % 7.1 % (1.7-12.7); NRBC # 0.07 10*3/uL; Neutrophils % 86.1 % (38.7-73.9); Platelet Count 297 T/CUMM (130-400); Red Blood Count 3.03 MC/CUMM (3.8-5.5); Red Cell Distribution Width 17.4 % (9.3-17.3); White Blood Count 15.7 T/CUMM (4-12)
[2019-03-10 06:10] LABS: Calcium 9.7 MG/DL (8.5-10.1); Osmolality,Calculated 307.7 MOS/KG (273-304)
[2019-03-10 06:27] LABS: Hypochromasia 1+; Lymphocytes 5 % (20-55); Microcytosis Slight; Ovalocytes Slight; Platelet Estimate Adequate; Segmented Neutrophils 90 % (50-85); Total Cells Counted 100
[2019-03-10] MEDS ORDERED: POTASSIUM CHLORIDE 20 MEQ TABLET PO ONE (07:58)
[2019-03-10] MEDS ORDERED: DOXYCYCLINE HYCLATE INJ 200 MG, LIDOCAINE 1% INJ 20 ML in STERILE WATER INJ 40 ML INTRAPLEUR ONE (08:00)
[2019-03-10] MEDS: FUROSEMIDE 40 MG/4 ML VIAL IV SCH ×2 (09:45→17:31)
[2019-03-10] MEDS: MEGESTROL 400 MG/10 ML UDCUP PO SCH ×2 (09:45→22:48)
[2019-03-10] MEDS: PANTOPRAZOLE 40 MG TABLET PO SCH (09:45)
[2019-03-10] MEDS: DOCUSATE SODIUM 100 MG CAPSULE PO SCH ×2 (09:46→22:48)
[2019-03-10] MEDS: FERROUS SULFATE 325 MG TABLET PO SCH (09:46)
[2019-03-10] MEDS: CARVEDILOL 3.125 MG TABLET PO SCH ×2 (09:46→17:32)
[2019-03-10] MEDS: LORATADINE 10 MG TABLET PO SCH (09:46)
[2019-03-10] MEDS ORDERED: POTASSIUM CHLORIDE 20 MEQ TABLET PO PRN (16:15)
[2019-03-10] MEDS: TAMSULOSIN 0.4 MG CAPSULE PO SCH (22:48)
[2019-03-11] MEDS: ZALEPLON 5 MG CAPSULE PO PRN (00:36)
[2019-03-11] MEDS: ALBUTEROL 2.5 MG/3 ML NEB RESP TX SCH ×4 (01:05→20:04)
[2019-03-11 04:41] LABS: Basophils % 0.2 % (0.0-0.8); Hemoglobin 8.8 GM/DL (14.0-18.0); Immature Granulocytes % 2.8 %; Immature Granulocytes Absolute 0.46 #; Lymphocytes # 0.7 10*3/uL (1.4-4.0); Lymphocytes % 4.5 % (21.2-54.2); Mean Corpuscular HGB Conc 30.3 GM/DL (32-36); Mean Corpuscular Volume 93.9 FL (87-102); Mean Platelet Volume 10.2 FL (9.6-12.0); Monocytes % 6.4 % (1.7-12.7); NRBC # 0.07 10*3/uL; Neutrophils % 86.1 % (38.7-73.9); Platelet Count 277 T/CUMM (130-400); Red Blood Count 3.09 MC/CUMM (3.8-5.5); Red Cell Distribution Width 17.5 % (9.3-17.3); White Blood Count 16.3 T/CUMM (4-12)
[2019-03-11 04:48] LABS: Calcium 9.8 MG/DL (8.5-10.1); Osmolality,Calculated 307.8 MOS/KG (273-304)
[2019-03-11 06:14] LABS: Lymphocytes 1 % (20-55); Platelet Estimate Normal; Polychromasia Few; Segmented Neutrophils 96 % (50-85); Target Cells Few; Total Cells Counted 100
[2019-03-11] MEDS ORDERED: DOXYCYCLINE HYCLATE INJ 200 MG, LIDOCAINE 1% INJ 20 ML in STERILE WATER INJ 40 ML INTRAPLEUR ONE (08:31)
[2019-03-11] MEDS: CARVEDILOL 3.125 MG TABLET PO SCH ×2 (09:12→16:30)
[2019-03-11] MEDS: POTASSIUM CHLORIDE 20 MEQ TABLET PO SCH (09:13)
[2019-03-11] MEDS: PANTOPRAZOLE 40 MG TABLET PO SCH (09:13)
[2019-03-11] MEDS: LORATADINE 10 MG TABLET PO SCH (09:13)
[2019-03-11] MEDS: FUROSEMIDE 40 MG/4 ML VIAL IV SCH ×2 (09:13→16:30)
[2019-03-11] MEDS: FERROUS SULFATE 325 MG TABLET PO SCH (09:13)
[2019-03-11] MEDS: DOCUSATE SODIUM 100 MG CAPSULE PO SCH ×2 (09:13→21:19)
[2019-03-11] MEDS: MEGESTROL 400 MG/10 ML UDCUP PO SCH ×2 (09:24→21:20)
[2019-03-11] MEDS: TAMSULOSIN 0.4 MG CAPSULE PO SCH (21:19)
[2019-03-12] MEDS: ALBUTEROL 2.5 MG/3 ML NEB RESP TX SCH ×4 (00:20→19:40)
[2019-03-12] MEDS: DOCUSATE SODIUM 100 MG CAPSULE PO SCH ×2 (08:34→21:07)
[2019-03-12] MEDS: CARVEDILOL 3.125 MG TABLET PO SCH ×2 (08:34→17:01)
[2019-03-12] MEDS: POTASSIUM CHLORIDE 20 MEQ TABLET PO SCH (08:34)
[2019-03-12] MEDS: PANTOPRAZOLE 40 MG TABLET PO SCH (08:34)
[2019-03-12] MEDS: LORATADINE 10 MG TABLET PO SCH (08:34)
[2019-03-12] MEDS: FERROUS SULFATE 325 MG TABLET PO SCH (08:34)
[2019-03-12] MEDS: MEGESTROL 400 MG/10 ML UDCUP PO SCH ×2 (08:41→21:07)
[2019-03-12] MEDS: FUROSEMIDE 40 MG/4 ML VIAL IV SCH ×2 (08:41→17:10)
[2019-03-12] MEDS: TAMSULOSIN 0.4 MG CAPSULE PO SCH (21:07)
[2019-03-13] MEDS: ALBUTEROL 2.5 MG/3 ML NEB RESP TX SCH ×4 (00:08→19:58)
[2019-03-13] MEDS: LORazepam 0.5 MG TABLET PO PRN (04:48)
[2019-03-13 07:26] LABS: Basophils % 0.1 % (0.0-0.8); Hematocrit 29.7 VOL% (42.0-52.0); Immature Granulocytes Absolute 0.33 #; Lymphocytes # 0.5 10*3/uL (1.4-4.0); Lymphocytes % 3.2 % (21.2-54.2); Mean Corpuscular HGB Conc 30.3 GM/DL (32-36); Mean Corpuscular Volume 94.3 FL (87-102); Mean Platelet Volume 9.8 FL (9.6-12.0); Monocytes % 6.2 % (1.7-12.7); NRBC # 0.11 10*3/uL; Neutrophils % 88.5 % (38.7-73.9); Platelet Count 243 T/CUMM (130-400); Red Blood Count 3.15 MC/CUMM (3.8-5.5); Red Cell Distribution Width 18.1 % (9.3-17.3); White Blood Count 16.4 T/CUMM (4-12)
[2019-03-13 07:42] LABS: Calcium 9.6 MG/DL (8.5-10.1)
[2019-03-13 08:01] LABS: Hypochromasia 1+; Lymphocytes 4 % (20-55); Platelet Estimate Adequate; Segmented Neutrophils 89 % (50-85); Total Cells Counted 100
[2019-03-13] MEDS: POTASSIUM CHLORIDE 20 MEQ TABLET PO SCH (08:32)
[2019-03-13] MEDS: DOCUSATE SODIUM 100 MG CAPSULE PO SCH ×2 (08:32→21:10)
[2019-03-13] MEDS: FERROUS SULFATE 325 MG TABLET PO SCH (08:33)
[2019-03-13] MEDS: LORATADINE 10 MG TABLET PO SCH (08:33)
[2019-03-13] MEDS: PANTOPRAZOLE 40 MG TABLET PO SCH (08:33)
[2019-03-13] MEDS: CARVEDILOL 3.125 MG TABLET PO SCH ×2 (08:35→16:43)
[2019-03-13] MEDS: FUROSEMIDE 40 MG/4 ML VIAL IV SCH ×3 (08:36→16:23)
[2019-03-13] MEDS: MEGESTROL 400 MG/10 ML UDCUP PO SCH ×2 (08:36→21:10)
[2019-03-13] MEDS: TAMSULOSIN 0.4 MG CAPSULE PO SCH (21:10)
[2019-03-14] MEDS: ALBUTEROL 2.5 MG/3 ML NEB RESP TX SCH ×4 (00:56→19:46)
[2019-03-14] MEDS: PANTOPRAZOLE 40 MG TABLET PO SCH (09:55)
[2019-03-14] MEDS: MEGESTROL 400 MG/10 ML UDCUP PO SCH (09:55)
[2019-03-14] MEDS: POTASSIUM CHLORIDE 20 MEQ TABLET PO SCH (09:55)
[2019-03-14] MEDS: LORATADINE 10 MG TABLET PO SCH (09:55)
[2019-03-14] MEDS: FUROSEMIDE 40 MG/4 ML VIAL IV SCH ×2 (09:55→17:12)
[2019-03-14] MEDS: CARVEDILOL 3.125 MG TABLET PO SCH ×3 (09:55→17:12)
[2019-03-14] MEDS: FERROUS SULFATE 325 MG TABLET PO SCH (09:55)
[2019-03-14] MEDS: DOCUSATE SODIUM 100 MG CAPSULE PO SCH (10:06)
[2019-03-14 20:53] VITALS: BP 97/58
== END 2019-03-14 21:25 | disposition home health service (06) | DRG 180 ==
LOC: EDBD → EDUNIT# → N.ED 13:50 → N.EDINP 18:08 → N.TELEN 20:24
PROVIDERS: ADMIT Internal Medicine; ATTEND Internal Medicine